=== PATIENT | male | born 1960 | race Caucasian/White ===

== ENCOUNTER 2019-05-12 15:11 | Outpatient (CLI) | payer OTHER, SELFPAY ==
--- NOTE | ~2019-05-12 | XR_ITS ---
EXAMINATION: XR knee RT 2V DATE: 05/12/2019 15:52 INDICATION: Right knee pain. TECHNIQUE: 2 views of right knee were obtained. COMPARISON: None. FINDINGS: Bone alignment is normal. No fracture. There is mild tricompartmental osteoarthritis. No kn ee joint effusion. IMPRESSION: 1. Mild right knee osteoarthritis. Reviewed, dictated and finalized at location B. RNATIVE DISPUTE RESOLUTION MEDIATOR
--- NOTE | ~2019-05-12 | XR_ITS ---
EXAMINATION: XR hip RT 2V w AP pelvis EXAM DATE: 05/12/2019 15:51 INDICATION: No known recent injury provided at this time. Pain of the pelvis, right hip. TECHNIQUE: Right hip frontal, 'frog leg' projections for interpretation. Frontal projection pelvis. There is no prior study for comparison. FINDINGS: There is mild to moderate bilateral hip primary osteoarthritis. No evidence of avascular n ecrosis. There are no acute fractures or dislocations identified. There is no subcutaneous gas. The soft tissue is unremarkable. There are no radiopaque foreign bodies. IMPRESSION: Mild to moderate symmetric bilateral hip osteoarthritis. Reviewed, dictated and finalized at location A. INSTRUCTOR
== END 2019-05-12 15:12 | disposition home or self-care (01) ==
LOC: ANHIMG 15:13
PROVIDERS: PCP Family Medicine; Visit Provider Family Medicine
DX: G89.29 Other chronic pain (principal); M16.0 Bilateral primary osteoarthritis of hip; M17.11 Unilateral primary osteoarthritis, right knee
CPT/HCPCS: 73502; 73521; 73560

== ENCOUNTER → 2019-08-22 11:44 | Outpatient (CLI) | payer OTHER, SELFPAY ==
--- NOTE | ~2019-08-22 | XR_ITS ---
EXAMINATION: XR ribs RT 2V w CXR 2V EXAM DATE: 08/22/2019 12:03 INDICATION: pain right lower aspect of the chest, ribs. TECHNIQUE: Frontal projection of the upper right ribs, frontal projection of the lower right ribs, ob lique projection of the right ribs, frontal and lateral chest x-ray(s) for interpretation. Comparison is made to prior examination from 07/01/2018. FINDINGS: There are no displaced acute right rib fractures identified. There is no soft tissue abno rmality seen. The lungs are clear. There are no pleural effusions. The cardiomediastinal silhouette is within normal limits. There is no pneumothorax suspected. There is moderate bilateral acromiocla vicular joint primary osteoarthritis. Bones are otherwise unremarkable. IMPRESSION: Unremarkable chest x-ray, right rib exam. Reviewed, dictated and finalized at location B.
== END ==
PROVIDERS: PCP Family Medicine; Visit Provider Family Medicine
DX: R07.81 Pleurodynia (principal)
CPT/HCPCS: 71045; 71101

== ENCOUNTER 2019-09-09 08:04 | Outpatient (CLI) | payer OTHER, SELFPAY ==
--- NOTE | ~2019-09-09 | MR_ITS ---
EXAMINATION: MR thoracic spine wo con DATE: 09/09/2019 08:58 INDICATION: Thoracic radiculopathy. TECHNIQUE: Magnetic resonance imaging (MRI) of the thoracic spine was performed without intravenous c ontrast. Sagittal localizer T1-weighted FSE of the cervical spine was obtained. Thoracic spine sequen lynda included sagittal T2-weighted FSE, sagittal T1-weighted FSE, sagittal T2-weighted FS FSE, and axi al T2-weighted FSE. COMPARISON: Chest 2 views 08/22/2019 FINDINGS: There is 9 degrees dextrocurvature of thoracic spine. There are Schmorl's nodes from T5-T6 through T12-L1. There is mild chronic anterior wedging of T12 and L1 vertebral bodies. There is mildl y decreased disc height at T3-T4, T4-T5, and T12-L1. At T3-T4, the disc is bulging with mild central canal stenosis. At T6-T7, there is a right central extrusion with mild central canal stenosis. At T7- T8, there is a right central extrusion with mild central canal stenosis. At T8-T9, there is a right c entral extrusion with mild central canal stenosis. At T10-T11, the disc is bulging with mild central canal stenosis. At T12-L1, there is a right central extrusion with mild central canal stenosis and ve ntral indentation of the spinal cord. There is multilevel mild facet joint osteoarthritis. There is s evere right facet joint osteoarthritis at T4-T5. There is mild neural foraminal stenosis on the right at T4-T5, T5-T6, and T6-T7. The spinal cord signal intensity is normal. IMPRESSION: 1. Mild thoracic spondylosis. Reviewed, dictated and finalized at location A.
== END 2019-09-09 08:05 | disposition home or self-care (01) ==
LOC: ANHIMG 08:06
PROVIDERS: PCP Family Medicine; Visit Provider Orthopaedic Surgery
DX: M47.24 Other spondylosis with radiculopathy, thoracic region (principal)
CPT/HCPCS: 72146

== ENCOUNTER 2020-02-11 10:19 | Outpatient (CLI) | payer OTHER, SELFPAY ==
--- NOTE | ~2020-02-11 | XR_ITS ---
EXAMINATION: XR forearm RT 2V EXAM DATE: 02/11/2020 10:50 INDICATION: Right forearm pain, history of tendon repair. Limited range of motion. Long-standing symp toms. TECHNIQUE: Frontal and lateral projections of the right forearm. Frontal and lateral projections ri ght wrist. FINDINGS: Right wrist is unremarkable. There is a metallic repair anchor in the proximal aspect of th e right radius with about 1-2 mm of lucency surrounding the anchor, could indicate some component of loosening. There is exuberant bony productive change at the ankle repair site both anteriorly and pos teriorly, which potentially could affect patient's range of motion. There are no acute fractures iden tified. The elbow is unremarkable. IMPRESSION: 1. Right radial tendon repair anchor with surrounding lucency, could indicate loosening. 2. Exuberant surrounding bony productive change. Reviewed, dictated and finalized at location A.
[2020-02-11 10:37] LABS: Hematocrit 49.3 % (42.0-52.0); Hemoglobin 17.3 g/dL (14.0-18.0); Mean Corpuscular HGB Conc 35.1 g/dl (32-36); Mean Corpuscular Hemoglobin 31.9 pg (26-34); Mean Platelet Volume 9.7 fl (7.4-10.4); Platelet Count Result 258 k/mm3 (150-375); Red Blood Count 5.42 M/mm3 (4.6-6.20); Red Cell Distribution Width 12.4 % (11.5-14.5); White Blood Count 6.2 K/mm3 (4.5-10.0)
[2020-02-11 11:15] LABS: Alanine Aminotransferase 40 U/L (4-50); Albumin Level 4.3 g/dL (3.5-5.1); Alkaline Phosphatase 67 U/L (38-126); Anion Gap 8 mmol/L (8-16); Aspartate Amino Transferase 36 U/L (17-59); Bilirubin,Total 0.4 mg/dL (0.2-1.3); Blood Urea Nitrogen 13 mg/dL (9-20); Calcium 9.3 mg/dL (8.4-10.2); Carbon Dioxide 26 mmol/L (22-30); Chloride 108 mmol/L (98-107); Cholesterol 167 mg/dL (0-200); Estimated Glomerular Filt Rate > 60; Glucose 104 mg/dL (75-110); HDL Direct 52 mg/dL; Sodium 142 mmol/L (137-145); Triglycerides 127 mg/dL (<150); Uric Acid 5.9 mg/dL (3.5-8.5)
[2020-02-11 11:35] LABS: Erythrocyte Sedimentation Rate 1 mm/hr (0-20); Rheumatoid Factor < 8.6 IU/ML (<12)
[2020-02-11 11:42] LABS: LDL Cholesterol Direct 94 mg/dL
[2020-02-11 12:02] LABS: Prostate Specific Antigen 0.6 ng/mL (< OR = 4.0)
[2020-02-16 10:50] LABS: ANA Cascade Screen Negative (Negative)
[2020-02-17 22:37] LABS: Anti Cyclic Citrullinated Pept <16 Units (<20)
== END 2020-02-11 10:20 | disposition home or self-care (01) ==
LOC: ANHLAB 10:21
PROVIDERS: PCP Family Medicine; Visit Provider Family Medicine
DX: Z00.00 Encounter for general adult medical examination without abnormal findings (principal); M61.50 Other ossification of muscle, unspecified site; M79.631 Pain in right forearm; M25.50 Pain in unspecified joint; D51.9 Vitamin B12 deficiency anemia, unspecified; Z12.5 Encounter for screening for malignant neoplasm of prostate; E78.2 Mixed hyperlipidemia; R93.6 Abnormal findings on diagnostic imaging of limbs
CPT/HCPCS: 36415; 73090; 80053; 80061; 82607; 84153; 84443; 84550; 85027; 85652; 86038; 86200; 86430; G0103

== ENCOUNTER 2020-02-24 10:18 | Outpatient (CLI) | payer OTHER, SELFPAY | END 2020-02-24 10:19 | disposition home or self-care (01) | LOC: ANHLAB 10:19 | PROVIDERS: PCP Family Medicine; Visit Provider Family Medicine | DX: E78.2 Mixed hyperlipidemia (principal) | CPT/HCPCS: 99199; 36415; 80061; 82172; 83695; 83704 ==

== ENCOUNTER → 2020-08-08 09:27 | Outpatient (CLI) | payer OTHER, SELFPAY ==
[2020-08-08 23:00] LABS: SARS-CoV-2 RNA PCR Negative
== END ==
PROVIDERS: PCP Family Medicine; Visit Provider Family Medicine
DX: Z20.828 Contact with and (suspected) exposure to other viral communicable diseases (principal)
CPT/HCPCS: C9803; U0003; U0005

== ENCOUNTER → 2020-08-15 10:24 | Outpatient (CLI) | payer OTHER, SELFPAY ==
[2020-08-15 20:45] LABS: SARS-CoV-2 RNA PCR Negative
== END ==
PROVIDERS: PCP Family Medicine; Visit Provider Family Medicine
DX: R68.89 Other general symptoms and signs (principal); Z20.822 Contact with and (suspected) exposure to COVID-19
CPT/HCPCS: C9803; U0003; U0005

== ENCOUNTER 2020-08-24 08:31 | Outpatient (CLI) | payer OTHER, SELFPAY ==
--- NOTE | 2020-08-24 08:35 | EST_ITS ---
Patient Info Name: Dalton Medina Age: 59 years : 1960 Gender: Male Ht: 66 in Wt: 236 lbs BSA: 2.28 m2 Exam Date: 08/24/2020 8:44 AM Exam Location: [facility] Stress Patient Status: Outpatient Admit Date: 08/24/2020 Staff Ordering Physician: Kim Ziegler NP Attending Provider: Kim Ziegler NP Exercise Technologist: Aggie Rodriguez CT Exercise Physician: Samuel Fragoso MD Exam Type: CA stress test treadmill Study Info Indications R06.02 - Shortness of breath An exercise stress test was performed. Summary 1. Normal sinus rhythm - normal ECG. 2. No abnormal ST/T wave changes with exercise. 3. Exercise stress test to 100% of age predicted maximum heart rate clinically and electrocardiographically negative. Protocol: [facility] ECG Details Stage: REST Duration (min): 1 min : 3 sec Speed (mph): 0.0 Grade (%): 0 HR (bpm): 86 SBP (mmHg): 126 DBP (mmHg): 77 METS: --- Stage: REST Duration (min): 11 min : 3 sec Speed (mph): 0.0 Grade (%): 0 HR (bpm): 87 SBP (mmHg): 126 DBP (mmHg): 77 METS: --- Stage: STAGE 1 Duration (min): 1 min : 0 sec Speed (mph): 1.7 Grade (%): 10 HR (bpm): 123 SBP (mmHg): 126 DBP (mmHg): 77 METS: --- Stage: STAGE 1 Duration (min): 2 min : 0 sec Speed (mph): 1.7 Grade (%): 10 HR (bpm): 133 SBP (mmHg): 126 DBP (mmHg): 77 METS: --- Stage: STAGE 1 Duration (min): 3 min : 0 sec Speed (mph): 1.7 Grade (%): 10 HR (bpm): 142 SBP (mmHg): 173 DBP (mmHg): 91 METS: --- Stage: STAGE 2 Duration (min): 1 min : 0 sec Speed (mph): 2.5 Grade (%): 12 HR (bpm): 145 SBP (mmHg): 173 DBP (mmHg): 91 METS: --- Stage: STAGE 2 Duration (min): 2 min : 0 sec Speed (mph): 2.5 Grade (%): 12 HR (bpm): 154 SBP (mmHg): 186 DBP (mmHg): 88 METS: --- Stage: STAGE 2 Duration (min): 3 min : 0 sec Speed (mph): 2.5 Grade (%): 12 HR (bpm): 163 SBP (mmHg): 186 DBP (mmHg): 88 METS: --- Stage: RECOVERY Duration (min): 0 min : 59 sec Speed (mph): 0.0 Grade (%): 0 HR (bpm): 142 SBP (mmHg): 234 DBP (mmHg): 51 METS: --- Stage: RECOVERY Duration (min): 1 min : 59 sec Speed (mph): 0.0 Grade (%): 0 HR (bpm): 125 SBP (mmHg): 196 DBP (mmHg): 59 METS: --- Stage: RECOVERY Duration (min): 2 min : 59 sec Speed (mph): 0.0 Grade (%): 0 HR (bpm): 119 SBP (mmHg): 200 DBP (mmHg): 67 METS: --- Stage: RECOVERY Duration (min): 3 min : 20 sec Speed (mph): 0.0 Grade (%): 0 HR (bpm): 112 SBP (mmHg): 200 DBP (mmHg): 67 METS: --- Rest HR: 87 bpm Peak HR: 163 bpm Rest Sys BP: 126 mmHg Peak Sys BP: 234 mmHg Max Pred HR: 162 bpm % Max Pred HR: 101 % Target HR: 138 bpm Max RPP: 38,142 bpm*mmHg Tam Score: 0 Target HR Summar
== END 2020-08-24 08:32 | disposition home or self-care (01) ==
PROVIDERS: PCP Nurse Practitioner Family; Visit Provider Nurse Practitioner Family
DX: R06.02 Shortness of breath (principal); R68.89 Other general symptoms and signs
CPT/HCPCS: 93017

== ENCOUNTER → 2020-12-12 13:03 | Outpatient (CLI) | payer OTHER, SELFPAY ==
--- NOTE | ~2020-12-12 | XR_ITS ---
XR knee LT min 4V DATE: 12/12/2020 13:20 INDICATION: Medial left knee pain TECHNIQUE: [place], lateral, AP and PA views COMPARISON: None FINDINGS: No fracture or dislocation or joint effusion. There is mild periarticular spurring of the p atellofemoral joint consistent with osteoarthritis. Minimal lateral compartment joint spaces are well preserved. No radiopaque intra-articular loose body or chondrocalcinosis. No periosteal reaction or bone destruction. IMPRESSION: Mild patellofemoral osteoarthritis Reviewed, dictated and finalized at location B.
== END ==
PROVIDERS: PCP Family Medicine; Visit Provider Family Medicine
DX: M17.12 Unilateral primary osteoarthritis, left knee (principal)
CPT/HCPCS: 73564

== ENCOUNTER → 2020-12-31 12:17 | Outpatient (CLI) | payer OTHER, SELFPAY ==
--- NOTE | ~2020-12-31 | XR_ITS ---
XR foot RT 2V DATE: 12/31/2020 12:29 INDICATION: Right foot pain. Bruising at the distal second and third toes TECHNIQUE: 4 views COMPARISON: None FINDINGS: No fracture or dislocation, periosteal reaction or bone destruction. Joint spaces are prese rved. No erosive changes. IMPRESSION: No significant abnormality Reviewed, dictated and finalized at location A. IMPRESSION: No significant abnormality
== END ==
PROVIDERS: PCP Family Medicine; Visit Provider Family Medicine
DX: M79.671 Pain in right foot (principal)
CPT/HCPCS: 73620

== ENCOUNTER 2021-02-01 08:52 | Outpatient (CLI) | payer OTHER, SELFPAY ==
--- NOTE | 2021-02-01 | EST_ITS ---
Patient Info Name: Dalton Medina Age: 60 years : 1960 Gender: Male Ht: 65 in Wt: 240 lbs BSA: 2.29 m2 HR: 81 bpm BP: 153 / 81 mmHg Technical Quality: Fair Exam Date: 02/01/2021 9:02 AM Exam Location: [facility] Pulmonary Patient Status: Outpatient Admit Date: 02/01/2021 Staff Ordering Physician: Samuel Fragoso MD It Application Support Analyst: Marina Palacio RDCS Attending Provider: DR FRAGOSO Referring Physician: Richmond RM; Exercise Technologist: Aggie Rodriguez CT Nurse: Storm Neff RN Exercise Physician: Samuel Fragoso MD Exam Type: CA stress echo w contrast Study Info Indications R07.9 - Chest pain, unspecified Treadmill exercise stress echocardiogram is performed. Contrast administered to opacify the left ventricle and to improve the deliniation of the left ventricular endocardial borders. Contrast/Agitated Saline Contrast/Ag. Saline: Definity Amount: 2.00 ml Administered By: Storm Neff, RN New IV Access: Right Summary 1. Normal sinus rhythm - normal ECG. 2. No abnormal ST/T wave changes with exercise. 3. Occasional PVCs. 4. Resting echo images done with definity contrast demonstrate normal LV size and contractility. 5. Stress images demonstrate normal hyperdynamic response to exercise with no evidence of stress-induced ischemia. 6. Maximum heart rate achieved was over 100% of age predicted max. Protocol: [facility] ECG Details Stage: REST Duration (min): 3 min : 9 sec Speed (mph): 0.0 Grade (%): 0 HR (bpm): 80 SBP (mmHg): 153 DBP (mmHg): 81 METS: --- Stage: REST Duration (min): 38 min : 2 sec Speed (mph): 0.0 Grade (%): 0 HR (bpm): 85 SBP (mmHg): 153 DBP (mmHg): 81 METS: --- Stage: STAGE 1 Duration (min): 1 min : 0 sec Speed (mph): 1.7 Grade (%): 10 HR (bpm): 119 SBP (mmHg): 153 DBP (mmHg): 81 METS: --- Stage: STAGE 1 Duration (min): 2 min : 0 sec Speed (mph): 1.7 Grade (%): 10 HR (bpm): 136 SBP (mmHg): 153 DBP (mmHg): 81 METS: --- Stage: STAGE 1 Duration (min): 3 min : 0 sec Speed (mph): 1.7 Grade (%): 10 HR (bpm): 146 SBP (mmHg): 171 DBP (mmHg): 90 METS: --- Stage: STAGE 2 Duration (min): 1 min : 0 sec Speed (mph): 2.5 Grade (%): 12 HR (bpm): 154 SBP (mmHg): 171 DBP (mmHg): 90 METS: --- Stage: STAGE 2 Duration (min): 2 min : 0 sec Speed (mph): 2.5 Grade (%): 12 HR (bpm): 167 SBP (mmHg): 180 DBP (mmHg): 90 METS: --- Stage: STAGE 2 Duration (min): 3 min : 0 sec Speed (mph): 2.5 Grade (%): 12 HR (bpm): 173 SBP (mmHg): 180 DBP (mmHg): 90 METS: --- Stage: STAGE 3 Duration (min): 0 min : 2 sec Speed (mph): 0.0 Grade (%): 0 HR (bpm): 173 SBP (mmHg): 180 DBP (mmHg): 90 METS: --- Stage: RECOVERY Duration (min): 0 min : 57 sec Speed (mph): 0.0 Grade (%): 0 HR (bpm):
== END 2021-02-01 08:53 | disposition home or self-care (01) ==
PROVIDERS: PCP Nurse Practitioner Family; Visit Provider Specialist
DX: R07.9 Chest pain, unspecified (principal)
CPT/HCPCS: 93351; C8930

== ENCOUNTER → 2021-04-08 07:59 | Outpatient (CLI) | payer OTHER, SELFPAY ==
[2021-04-08 20:05] LABS: SARS-CoV-2 RNA PCR Positive
== END ==
PROVIDERS: PCP Nurse Practitioner Family; Visit Provider Family Medicine
DX: U07.1 COVID-19 (principal)
CPT/HCPCS: C9803; U0003; U0005

== ENCOUNTER 2021-04-15 10:41 | Outpatient (RCR) | payer OTHER, SELFPAY ==
[2021-04-15] MEDS: ACETAMINOPHEN 325 MG TABLET 650 MG PO (15:04)
[2021-04-15] MEDS: FAMOTIDINE 20 MG TABLET PO (15:04)
[2021-04-15] MEDS: diphenhydrAMINE HCl CAP 25 MG CAPSULE PO (15:04)
[2021-04-15 15:06] VITALS: BP 115/65; PULSE 95; RESP 18; TEMP 37.6; O2SAT 97
[2021-04-15 16:04] VITALS: BP 124/73
--- NOTE | 2021-04-16 10:32 | PC.NURSE ---
Spoke to Carol and he said he feels there is some improvement but does not feel great yet. He has no questions for me at this time.
== END 2021-04-15 17:00 ==
LOC: AMCINF 10:41
PROVIDERS: PCP Family Medicine; Visit Provider Internal Medicine Hematology & Oncology
DX: U07.1 COVID-19 (principal); J44.9 Chronic obstructive pulmonary disease, unspecified
CPT/HCPCS: A9270; M0243

== ENCOUNTER 2021-04-16 20:40 | Inpatient (IN) | payer OTHER, SELFPAY ==
--- NOTE | ~2021-04-16 | CT_ITS ---
EXAMINATION: CTA chest PE protocol EXAM DATE: 04/16/2021 23:25 INDICATION: Elevated dimer, COVID +. TECHNIQUE: Spiral CTA of the chest (pulmonary arteries) was performed with 100 cc Omnipaque 350 intr avenous contrast injection. Images were acquired during the pulmonary arterial phase. Coronal maxi mum intensity projection 3D-reconstructions were created by the technologist on dedicated workstation . Axial, coronal and sagittal reformatted images were reviewed. The dose-length product (DLP) for t his examination was 889.55 mGy-cm. The exposure was tailored according to patient size (auto mA exp osure control), and iterative reconstruction (ASIR) was used as additional dose reduction technique. Correlation is made to chest x-ray earlier same date. FINDINGS: Pulmonary arteries are well opacified and without intraluminal filling defects. No thorac ic aortic dissection. There is small to moderate amount of peripheral and dependent groundglass airspace disease, distribut ion and appearance is consistent with acute COVID pneumonia. There are no pleural or pericardial eff usions. Tracheobronchial tree is patent. There is no mediastinal, hilar or axillary lymphadenopat hy. There is no pneumothorax. Heart normal in size. There is mild coronary arterial calcificati on, arterial sclerosis. Hepatic steatosis. There is thoracic spondylosis without osteoblastic or os teolytic lesions identified. IMPRESSION: 1. Small to moderate amount of acute COVID pneumonia. 2. No pulmonary emboli. Reviewed, dictated and finalized at location G. CLASSER
--- NOTE | ~2021-04-16 | XR_ITS ---
EXAMINATION: XR chest 1V portable EXAM DATE: 04/16/2021 21:47 INDICATION: Cough and dyspnea. TECHNIQUE: Portable AP frontal chest x-ray was obtained. Comparison is made to prior examination from 08/22/2019. FINDINGS: No definite focal airspace disease. There are no pleural effusions. Cardiac silhouette is prominent but magnified on this AP technique. There is no pneumothorax suspected. The bones and s oft tissues are unremarkable. IMPRESSION: No definite focal airspace disease. Reviewed, dictated and finalized at location G. SPORT AIDE
--- NOTE | ~2021-04-16 | XR_ITS ---
EXAMINATION: XR chest 1V portable DATE: 04/18/2021 06:01 INDICATION: COVID-19 pneumonia. TECHNIQUE: A single frontal view of the chest was obtained. COMPARISON: Chest single view 04/16/2021, chest CT 04/16/2021 FINDINGS: There are patchy airspace opacities in the mid and lower lung zones with a peripheral predo minance. No pleural effusion or pneumothorax. The heart size is normal. IMPRESSION: 1. Worsened patchy airspace opacities in the mid and lower lung zones, consistent with COVID-19 pneum onia. Reviewed, dictated and finalized at location A. MANAGER IMPRESSION: 1. Worsened patchy airspace opacities in the mid and lower lung zones, consiste nt with COVID-19 pneumonia.
--- NOTE | 2021-04-16 21:10 | ED.URI ---
HPI - URI/Sore Throat General Chief Complaint: Upper Respiratory Infection Stated Complaint: COVID + Time Seen by Provider: 04/16/21 21:09 Source: patient Mode of arrival: ambulatory Limitations: no limitations History of Present Illness HPI Narrative: The patient is a 60-year-old male who is positive for Covid, currently on day 9 of illness, presenting for evaluation of myalgias, arthralgias, dehydration. Patient tested positive for Covid on April 08. Patient states he has been unable to tolerate oral intake. States that every time he tries to eat or drink anything he experiences diarrhea. Patient reports nasty taste in his mouth anytime he tries to eat. He reports subjective fever and chills. He reports myalgias, arthralgias throughout his body. He denies any chest pain or shortness of breath. He does report dry cough. Denies vomiting, does report mild nausea. He denies leg swelling or calf pain. Denies any pleuritic pain. Patient has been ambulatory. He reports feeling diffusely weak but denies any focal weakness or numbness. Patient and received monoclonal antibody infusions this morning. Patient is unvaccinated. Positive contact is his grandchild. Related Data Allergies Allergy/AdvReac Type Severity Reaction Status Date / Time No Known Allergies Allergy Verified 04/15/21 15:10 Review of Systems Review of Systems: CONSTITUTIONAL: Reports fever and chills EYES: Denies visual changes, redness, or discharge. ENT: Reports rhinorrhea and congestion CARDIOVASCULAR: Denies chest pain, palpitations, or edema. RESPIRATORY: Reports dry cough without shortness of breath GASTROINTESTINAL: Denies abdominal pain, reports nausea and diarrhea GENITOURINARY: Denies dysuria or hematuria. SKIN: Denies rash or itching. MUSCULOSKELETAL: Denies reports myalgias, arthralgias NEUROLOGIC: Reports mild headache, denies focal numbness, endorses generalized weakness PMFSH Past Medical History Medical History Abnormal fasting glucose Acute non-recurrent maxillary sinusitis Acute pain of right foot COVID-19 (~04/06/21) rapid test positive for 04/08/2021 0730 Encounter for prostate cancer screening Encounter for screening for other viral diseases Encounter for wellness examination in adult Exposure to COVID-19 virus Family history of colon cancer in father Infected tick bite of neck (09/02/20) Joint pain Left knee pain Mixed hyperlipidemia Myositis ossificans KHURRAM on CPAP Osteoarthritis of left knee Otitis externa in other diseases classified elsewhere, right ear (10/13/20) Pain in right forearm Polyp of colon (08/12/99) normal colonoscopy 02/18/1995, 2 polyps on 08/12/1999, polyp on 08/15/2005, 3 polyps on 02/22/2010, 2 polyps on 04/30/2017 Right knee pain Thoracic radiculitis URI, acute Vitamin B12 deficiency anemia Social History Social History Smoking status: Never smoker Gender identity (if verbalized by the patient): Male Spiritual care concerns: No Exam Narrative: GENERAL: Awake, alert, conversant HEAD: Normocephalic, atraumatic. EYES: PERRLA and EOMI. ENT: Nares clear, no rhinorrhea or epistaxis. Mucous membranes dry NECK: Supple. CHEST: No respiratory distress, breathing even and non labored, mildly coarse breath sounds bilaterally HEART: Regular rate, sinus rhythm ABDOMEN:Non distended, non tender EXTREMITIES: Normal range of motion. No edema. SKIN: Warm, dry, no rash. NEURO:No focal deficits. Alert and oriented x3. Patient ambulated through the emergency department without any ataxia or difficulty with ambulation. Course Vital Signs Vital signs: Vital Signs Temperature 36.9 C 04/16/21 21:26 Pulse Rate 90 04/16/21 21:26 Respiratory Rate 18 04/16/21 21:26 Blood Pressure 153/84 H 04/16/21 21:26 Pulse Oximetry 98 04/16/21 21:26 Temperature 36.9 C 04/16/21 21:26 Pulse
[2021-04-16 21:26] VITALS: BP 153/84; PULSE 90; RESP 18; TEMP 36.9; O2SAT 98
--- NOTE | 2021-04-16 21:33 | ECG_ITS ---
Measurements Intervals Donovan Rate: 98 P: 61 VA: 146 QRS: 15 QRSD: 82 T: 39 QT: 318 QTc: 408 Interpretive Statements SINUS RHYTHM POSSIBLE LEFT ATRIAL ENLARGEMENT BASELINE WANDER- V3 BORDERLINE ECG Electronically Signed On 04-17-2021 6:40:19 DIETARY COOK by Shawn Orantes D.O.
[2021-04-16] MEDS: ONDANSETRON INJ 4 MG/2 ML VIAL IV PUSH (22:12)
[2021-04-16] MEDS: SODIUM CHLORIDE 0.9% IV 1,000 ML 999 ML IV CONT (22:12)
[2021-04-16 22:50] LABS: Basophils Percent Auto 0.3 % (0.2-1.2); Hemoglobin 14.4 g/dL (14.0-18.0); Immature Granulocyte Absolute 0.03 K/mm3 (0.00-0.031); Immature Granulocyte Percent A 0.4 % (0-0.5); Lymphocytes Absolute Auto 0.73 K/mm3 (0.9-3.2); Lymphocytes Percent Auto 10.5 % (18.3-44.2); Mean Corpuscular HGB Conc 35.1 g/dl (32-36); Mean Corpuscular Volume 88.4 fl (80-100); Mean Platelet Volume 9.2 fl (7.4-10.4); Monocytes Absolute Auto 0.4 K/mm3 (0.1-0.6); Monocytes Percent Auto 5.5 % (2.6-8.5); Neutrophils Absolute Auto 5.8 K/mm3 (1.3-6.7); Neutrophils Percent Auto 83.3 % (45.5-73.1); Platelet Count Result 189 k/mm3 (150-375); Red Blood Count 4.64 M/mm3 (4.6-6.20); Red Cell Distribution Width 12.6 % (11.5-14.5); White Blood Count 6.9 K/mm3 (4.5-10.0)
[2021-04-16 23:02] LABS: Lactic Acid Reflex 0.7 mmol/L (0.7-2.1)
[2021-04-16 23:04] LABS: INR 0.9
[2021-04-16 23:05] LABS: Alanine Aminotransferase 54 U/L (4-50); Albumin Level 3.9 g/dL (3.5-5.1); Alkaline Phosphatase 53 U/L (38-126); Anion Gap 8 mmol/L (8-16); Aspartate Amino Transferase 105 U/L (17-59); Bilirubin,Total 0.4 mg/dL (0.2-1.3); Blood Urea Nitrogen 17 mg/dL (9-20); Carbon Dioxide 25 mmol/L (22-30); Chloride 94 mmol/L (98-107); Estimated CRCL calculation 95 ml/min; Estimated Glomerular Filt Rate > 60; Glucose 120 mg/dL (65-110); Partial Thromboplastin Time 36.3 SECONDS (22.3-36.8); Potassium 3.7 mmol/L (3.4-5.0); Sodium 127 mmol/L (137-145)
[2021-04-16 23:07] LABS: D Dimer 0.97 ug/mL (<0.48)
[2021-04-16 23:12] LABS: Creatine Kinase 2839 U/L (55-170)
[2021-04-16 23:16] LABS: CRP 12.3 mg/dL (<1.0)
[2021-04-16 23:56] LABS: Ferritin > 1000.00 ng/mL (11.1-264)
[2021-04-17] VITALS (8 sets, daily range): BP systolic 113–157; BP diastolic 65–82; PULSE 70–95; RESP 16–20; TEMP 36.1–37.4; O2SAT 91–98; BMI 38.8
--- NOTE | 2021-04-17 00:14 | PM.IMHP ---
H&P: HPI History of Present Illness Date/Time: 04/17/21 00:14 Chief Complaint: Body aches and pains Narrative: This is a 60-year-old male with past medical history significant for GERD co abnormal fasting glucose, obstructive sleep apnea on CPAP, osteoarthritis of the left knee. Patient presented to the emergency room due to generalized malaise, body aches and pains, loss of taste and smell,poor appetite ,feeling dehydrated has not been able to eat in 10 days. Patient had a gallery for sent given and several family members have turned out to be positive COVID-19. Patient denies any fevers, rigors, chills, shortness of breath, cough ,sputum production ,nausea ,vomiting but has had diarrhea. Preliminary workup was significant for ferritin above 1000, CPK of 2880, sodium of 127. A COVID PCR is pending currently. Patient has been admitted for further evaluation management and treatment. Review of Systems Review of Systems: Generalized malaise body aches and pains poor appetite change of taste and smell Constitutional: Constitutional: Reports chills, Reports fatigue, Denies fever(s), Reports lethargy, Reports malaise, Denies night sweats, Reports poor appetite and Reports weakness Eyes: Eyes: Denies change in vision and Denies photophobia ENT: Denies dysphagia, Denies vertigo, Denies otalgia, Denies epistaxis, Denies nasal congestion, Denies nasal discharge, Denies nasal obstruction and Denies odynophagia Cardiovascular: Cardiovascular: Denies chest pain, Denies chest pain at rest, Denies pedal edema, Denies irregular heart rhythm, Denies leg edema, Denies lightheadedness, Denies radiating jaw, neck or arm pain, Denies palpitations, Denies dyspnea on exertion and Denies orthopnea Respiratory: Respiratory: Denies change in phlegm color, Denies cough, Denies excessive phlegm production, Denies dyspnea and Denies wheezing Gastrointestinal: Gastrointestinal: Denies abdominal pain, Denies dyspepsia, Denies heartburn, Denies diarrhea, Denies nausea and Denies vomiting Musculoskeletal: Musculoskeletal: Denies arthralgias, Denies joint swelling and Denies neck pain Integumentary/Breasts: Skin/Breast: Denies rash Neurologic: Denies focal weakness and Denies Sensory deficit (Neuro) Psychiatric: Psychiatric: Reports no additional psychiatric complaints and Reports as per HPI Endocrine: Endocrine: Reports no additional endocrine complaints and Reports as per HPI Hematologic/Lymphatic: Hematologic/Lymphatic: Reports no additional hematologic/lymphatic complaints and Reports as per HPI Allergic/Immunologic: Allergic/Immunologic: Reports no additional allergic/immunologic complaints and Reports as per HPI [facility] Past Medical History Medical History Abnormal fasting glucose Acute non-recurrent maxillary sinusitis Acute pain of right foot COVID-19 (~04/06/21) rapid test positive for 04/08/2021 0730 Encounter for prostate cancer screening Encounter for screening for other viral diseases Encounter for wellness examination in adult Exposure to COVID-19 virus Family history of colon cancer in father Infected tick bite of neck (09/02/20) Joint pain Left knee pain Mixed hyperlipidemia Myositis ossificans KHURRAM on CPAP Osteoarthritis of left knee Otitis externa in other diseases classified elsewhere, right ear (10/13/20) Pain in right forearm Polyp of colon (08/12/99) normal colonoscopy 02/18/1995, 2 polyps on 08/12/1999, polyp on 08/15/2005, 3 polyps on 02/22/2010, 2 polyps on 04/30/2017 Right knee pain Thoracic radiculitis URI, acute Vitamin B12 deficiency anemia Family History Family History (Updated 04/17/21 @ 02:57 by Morena Boyd RN) Father Acute myocardial infarction Colon cancer Mother Hypertension Social History Social History Smoking status: Never smoker Alcohol intake: never Substance use: never Gender identi
[2021-04-17 01:45] LABS: Troponin I < 0.012 ng/mL (0.000-0.034)
[2021-04-17 03:49] LABS: Add Urine Microscopic? YES; Appearance Urine Clear (Clear); Bacteria Urine Trace /hpf; Bilirubin Urine Negative (Negative); Blood Urine 2+ (Negative); Color Urine Yellow (Yellow); Glucose Urine UA Negative (Negative); Ketones Urine 1+ mg/dL (Negative); Leukocyte Esterase Ur Negative LEU/UL (Negative); Mucus Urine Rare /lpf; Nitrate Urine Negative (Negative); Protein Urine 2+ mg/dL (Negative); RBC Urine 0-2 /hpf (0-2); Urobilinogen Urine Negative mg/dL (<2.0); WBC Urine 0-3 /hpf
[2021-04-17 03:55] LABS: Specific Grav Ur 1.058 (1.001-1.035)
[2021-04-17] MEDS: SODIUM CHLORIDE 0.9% IV 1,000 ML 125 ML IV CONT (07:30)
[2021-04-17 07:38] LABS: Basophils Percent Auto 0.2 % (0.2-1.2); Hematocrit 41.4 % (42.0-52.0); Hemoglobin 14.3 g/dL (14.0-18.0); Immature Granulocyte Absolute 0.02 K/mm3 (0.00-0.031); Immature Granulocyte Percent A 0.3 % (0-0.5); Lymphocytes Absolute Auto 0.74 K/mm3 (0.9-3.2); Lymphocytes Percent Auto 11.5 % (18.3-44.2); Mean Corpuscular HGB Conc 34.5 g/dl (32-36); Mean Corpuscular Hemoglobin 30.2 pg (26-34); Mean Corpuscular Volume 87.5 fl (80-100); Mean Platelet Volume 9.5 fl (7.4-10.4); Monocytes Absolute Auto 0.4 K/mm3 (0.1-0.6); Monocytes Percent Auto 5.4 % (2.6-8.5); Neutrophils Absolute Auto 5.3 K/mm3 (1.3-6.7); Neutrophils Percent Auto 82.6 % (45.5-73.1); Platelet Count Result 202 k/mm3 (150-375); Red Blood Count 4.73 M/mm3 (4.6-6.20); Red Cell Distribution Width 12.5 % (11.5-14.5); White Blood Count 6.4 K/mm3 (4.5-10.0)
[2021-04-17 08:03] LABS: Alanine Aminotransferase 55 U/L (4-50); Albumin Level 3.9 g/dL (3.5-5.1); Alkaline Phosphatase 54 U/L (38-126); Anion Gap 8 mmol/L (8-16); Aspartate Amino Transferase 108 U/L (17-59); Bilirubin,Total 0.5 mg/dL (0.2-1.3); Blood Urea Nitrogen 16 mg/dL (9-20); Carbon Dioxide 25 mmol/L (22-30); Chloride 95 mmol/L (98-107); Creatine Kinase 2927 U/L (55-170); Estimated CRCL calculation 97 ml/min; Estimated Glomerular Filt Rate > 60; Glucose 113 mg/dL (65-110); Potassium 3.8 mmol/L (3.4-5.0); Sodium 128 mmol/L (137-145)
--- NOTE | 2021-04-17 15:08 | PM.IMPN ---
Progress Note: A&P Assessment and Plan (1) Rhabdomyolysis: Code(s): M62.82 - Rhabdomyolysis Status: Acute Assessment and Plan: Patient had TCK 2839 on admission. He has 2+ blood but no RBCs consistent with rhabdo. He was started on IV fluids despite having COVID. Will need to monitor closely and stop IV fluids when TCK<1000 and/or urine blood resolves. No offending agents. Suspect realted to COVID. (2) Pneumonia due to COVID-19 virus: Code(s): U07.1 - COVID-19; J12.82 - Pneumonia due to coronavirus disease 2019 Status: Acute Assessment and Plan: Patient diagnosed with COVID 04/08. CT Chest has findings of COVID PNA but remains on room air thus does not require steroids or remdesivir. CRP 12. Follow for now. (3) COVID-19: Onset Date: ~04/06/21 Code(s): U07.1 - COVID-19 Status: Acute Assessment and Plan: As above. Most of his symptoms are related to GI. This should run its course. He did receive REGEN-COV which does have the side effects of n/v as well. Continue to monitor. Continue supportive care. (4) Elevated LFTs: Code(s): R79.89 - Other specified abnormal findings of blood chemistry Status: Acute Assessment and Plan: LFTs mildly elevated. Probably related to COVID and/or rhabdo. Will follow. Check hepatits panel given the GI symptoms (5) Acute hyponatremia: Code(s): E87.1 - Hypo-osmolality and hyponatremia Status: Acute Assessment and Plan: Serum sodium 127 on admission. Renal function normal. UA showing specific gravity concentrated. Not on diuretics. Repeat Na better. Continue with IV fluids for the rhabdomyolysis. Follow (6) KHURRAM on CPAP: Code(s): G47.33 - Obstructive sleep apnea (adult) (pediatric); Z99.89 - Dependence on other enabling machines and devices Status: Acute Assessment and Plan: Would hold CPAP given that he has COVID PNA. (7) DVT prophylaxis: Code(s): Z29.9 - Encounter for prophylactic measures, unspecified Status: Acute Assessment and Plan: Lovenox Subjective Date/time seen: AF Gen - NARD Chest - CTA bilaterally, nml RR CV - RRR S1/S2 Abd - Soft, NT/ND, Positive BS Ext - No pedal edema Neuro - Alert and oriented. Nonfocal exam. Psych - Nml mood and affect Skin - Warm and dry04/17/21 15:08 Interval history: 60yo male with KHURRAM here for nausea, vomiting and diarrhea after being recently tested positive for COVID. Patient is unvaccinated. Patient had a cough and congestion 04/14 and tested positive for COVID the next day. He received monoclonal AB on 04/15/21. He also began to have nausea, vomiting with diarrhea. Diarrhea occurs with eating. No CP. Mild cough now. Tolerating po. Has taste disturbance and anosmia. Exam Narrative: AF 98.3 131/78 83 16 95% Gen - NARD sitting at the side of the bed Chest - bibasilar inspiratory crackles, nml RR CV - RRR S1/S2 Abd - Soft, NT/ND, Positive BS Ext - No pedal edema Psych - Nml mood and affect Skin - Warm and dry Objective Data Vital Signs Vital Signs: Vital Signs - 24 hr 04/16/21 21:26 04/17/21 01:18 04/17/21 01:30 Temperature 98.4 F 96.9 F L Pulse Rate 90 70 87 Respiratory Rate 18 18 18 Blood Pressure 153/84 H 157/82 H 130/80 Pulse Oximetry 98 96 94 04/17/21 04:44 04/17/21 04:47 04/17/21 08:00 Temperature 98.1 F 99.3 F Pulse Rate 81 95 Respiratory Rate 18 16 Blood Pressure 114/65 129/75 Pulse Oximetry 98 94 91 04/17/21 13:54 Temperature 98.3 F Pulse Rate 83 Respiratory Rate 16 Blood Pressure 131/78 Pulse Oximetry 95 Intake/Output Intake/Output: Intake & Output 04/14/21 04/15/21 04/16/21 04/17/21 23:59 23:59 23:59 23:59 Intake Total 1100 320 Output Total 500 Balance 1100 -180 Meds/Results Medications: Active Medications Generic Name Dose Route Start Last Admin Trade Name Freq PRN Reason Stop Dose Admin Enoxaparin Sodium 4
[2021-04-18] VITALS (8 sets, daily range): BP systolic 110–136; BP diastolic 63–86; PULSE 76–83; RESP 16–19; TEMP 36.4–37.3; O2SAT 93–98
[2021-04-18 07:25] LABS: Basophils Percent Auto 0.3 % (0.2-1.2); Eosinophils Percent Auto 0.3 % (0-4.4); Hematocrit 37.5 % (42.0-52.0); Immature Granulocyte Absolute 0.02 K/mm3 (0.00-0.031); Immature Granulocyte Percent A 0.6 % (0-0.5); Lymphocytes Absolute Auto 0.94 K/mm3 (0.9-3.2); Lymphocytes Percent Auto 27.7 % (18.3-44.2); Mean Corpuscular HGB Conc 34.7 g/dl (32-36); Mean Corpuscular Hemoglobin 31.3 pg (26-34); Mean Corpuscular Volume 90.1 fl (80-100); Mean Platelet Volume 9.4 fl (7.4-10.4); Monocytes Absolute Auto 0.3 K/mm3 (0.1-0.6); Monocytes Percent Auto 9.4 % (2.6-8.5); Neutrophils Absolute Auto 2.1 K/mm3 (1.3-6.7); Neutrophils Percent Auto 61.7 % (45.5-73.1); Platelet Count Result 206 k/mm3 (150-375); Red Blood Count 4.16 M/mm3 (4.6-6.20); Red Cell Distribution Width 12.6 % (11.5-14.5); White Blood Count 3.4 K/mm3 (4.5-10.0)
[2021-04-18] MEDS: SODIUM CHLORIDE 0.9% IV 1,000 ML 125 ML IV CONT ×2 (08:08→18:39)
[2021-04-18 08:13] LABS: Alanine Aminotransferase 57 U/L (4-50); Albumin Level 3.3 g/dL (3.5-5.1); Alkaline Phosphatase 49 U/L (38-126); Anion Gap 4 mmol/L (8-16); Aspartate Amino Transferase 98 U/L (17-59); Bilirubin,Total 0.4 mg/dL (0.2-1.3); Blood Urea Nitrogen 11 mg/dL (9-20); CRP 5.9 mg/dL (<1.0); Calcium 7.6 mg/dL (8.4-10.2); Carbon Dioxide 26 mmol/L (22-30); Chloride 101 mmol/L (98-107); Creatine Kinase 2322 U/L (55-170); Estimated CRCL calculation 110 ml/min; Estimated Glomerular Filt Rate > 60; Glucose 110 mg/dL (65-110); Lactate Dehydrogenase 1285 U/L (313-618); Potassium 3.5 mmol/L (3.4-5.0); Sodium 131 mmol/L (137-145)
--- NOTE | 2021-04-18 09:32 | PM.IMPN ---
Progress Note: A&P Assessment and Plan (1) Rhabdomyolysis: Code(s): M62.82 - Rhabdomyolysis Status: Acute Assessment and Plan: Patient had TCK 2839 on admission. He has 2+ blood but no RBCs consistent with rhabdo. He was started on IV fluids despite having COVID. Will need to monitor closely and stop IV fluids when TCK<1000 and/or urine blood resolves. No offending agents so suspect related to COVID. TCK better today. Continue IV fluids. Lasix x1. (2) Pneumonia due to COVID-19 virus: Code(s): U07.1 - COVID-19; J12.82 - Pneumonia due to coronavirus disease 2019 Status: Acute Assessment and Plan: Patient diagnosed with COVID 04/08. CT Chest has findings of COVID PNA but remains on room air thus does not require steroids or remdesivir. CRP was 12 now down to 5.9. Follow for now. (3) COVID-19: Onset Date: ~04/06/21 Code(s): U07.1 - COVID-19 Status: Acute Assessment and Plan: As above. Most of his symptoms are related to GI. This should run its course. He did receive REGEN-COV which does have the side effects of n/v as well. leukopenia noted and also could be related to COVID. Continue to monitor. Continue supportive care. (4) Elevated LFTs: Code(s): R79.89 - Other specified abnormal findings of blood chemistry Status: Acute Assessment and Plan: LFTs mildly elevated. Probably related to COVID and/or rhabdomyolysis. Hepatitis panel pending. AST better but ALT about unchanged. Follow. (5) Acute hyponatremia: Code(s): E87.1 - Hypo-osmolality and hyponatremia Status: Acute Assessment and Plan: Serum sodium 127 on admission. Renal function normal. UA showing specific gravity concentrated. Not on diuretics. Repeat Na better. Continue with IV fluids for the rhabdomyolysis. Follow (6) KHURRAM on CPAP: Code(s): G47.33 - Obstructive sleep apnea (adult) (pediatric); Z99.89 - Dependence on other enabling machines and devices Status: Acute Assessment and Plan: Would hold CPAP given that he has COVID PNA. (7) DVT prophylaxis: Code(s): Z29.9 - Encounter for prophylactic measures, unspecified Status: Acute Assessment and Plan: Lovenox Subjective Date/time seen: 04/18/21 09:32 Interval history: 60yo male with KHURRAM here for nausea, vomiting and diarrhea after being recently tested positive for COVID. Patient is unvaccinated. Patient with mild cough he feels related to PND. No COELHO or SOB. No CP. Diarrhea has resolved. Eating better but still with dysgeusia. Exam Narrative: AF 98.6 113/70 76 16 93% RA Gen - NARD sitting at the side of the bed Chest - mild bibasilar inspiratory crackles, nml RR CV - RRR S1/S2 Abd - Soft, NT/ND, Positive BS Ext - No pedal edema Psych - Nml mood and affect Skin - Warm and dry Objective Data Vital Signs Vital Signs: Vital Signs - 24 hr 04/17/21 13:54 04/17/21 16:00 04/17/21 20:25 Temperature 98.3 F 98.4 F 98.8 F Pulse Rate 83 85 87 Respiratory Rate 16 20 18 Blood Pressure 131/78 113/74 117/71 Pulse Oximetry 95 92 95 04/18/21 00:00 04/18/21 06:00 Temperature 98.7 F 98.6 F Pulse Rate 78 76 Respiratory Rate 16 16 Blood Pressure 110/63 113/70 Pulse Oximetry 95 93 Intake/Output Intake/Output: Intake & Output 04/15/21 04/16/21 04/17/21 04/18/21 23:59 23:59 23:59 23:59 Intake Total 1100 2320 500 Output Total 500 Balance 1100 1820 500 Meds/Results Medications: Active Medications Generic Name Dose Route Start Last Admin Trade Name Freq PRN Reason Stop Dose Admin Enoxaparin Sodium 40 mg 04/17/21 09:00 04/18/21 08:14 Enoxaparin 40 Mg/0.4 Ml Syringe SUB-Q Not Given DAILY TAMMY Famotidine 20 mg 04/17/21 06:53 Famotidine 20 Mg Tablet PO BID PRN reflux Sodium Chloride 1,000 mls @ 125 mls/hr 04/17/21 06:55 04/18/21 08:08 Normal Saline Iv IV CONT 125 mls/hr .Q8H TAMMY Administrati
[2021-04-18 10:12] LABS: Hepatitis C Virus Antibody Negative (Negative)
[2021-04-18 11:18] LABS: HAV RESULT Negative (Negative); Hepatitis B Core IgM Result Negative (Negative); Hepatitis B Surface Antigen Negative (Negative)
[2021-04-18] MEDS: FUROSEMIDE INJ 40 MG/4 ML VIAL 20 MG IV PUSH (13:23)
[2021-04-18] MEDS: POTASSIUM CHLORIDE 20 MEQ TABLET 40 MEQ PO (13:49)
[2021-04-19 00:07] VITALS: BP 127/70; PULSE 81; RESP 18; TEMP 36.3; O2SAT 95
[2021-04-19] MEDS: SODIUM CHLORIDE 0.9% IV 1,000 ML 125 ML IV CONT (01:25)
[2021-04-19 04:44] VITALS: BP 131/81; PULSE 77; RESP 16; TEMP 36.3; O2SAT 96
[2021-04-19 07:56] LABS: Basophils Percent Auto 0.4 % (0.2-1.2); Eosinophils Percent Auto 0.6 % (0-4.4); Hematocrit 39.3 % (42.0-52.0); Hemoglobin 13.4 g/dL (14.0-18.0); Immature Granulocyte Absolute 0.03 K/mm3 (0.00-0.031); Immature Granulocyte Percent A 0.6 % (0-0.5); Lymphocytes Absolute Auto 0.88 K/mm3 (0.9-3.2); Lymphocytes Percent Auto 18.3 % (18.3-44.2); Mean Corpuscular HGB Conc 34.1 g/dl (32-36); Mean Platelet Volume 9.4 fl (7.4-10.4); Monocytes Absolute Auto 0.5 K/mm3 (0.1-0.6); Monocytes Percent Auto 10.6 % (2.6-8.5); Neutrophils Absolute Auto 3.4 K/mm3 (1.3-6.7); Neutrophils Percent Auto 69.5 % (45.5-73.1); Platelet Count Result 260 k/mm3 (150-375); Red Blood Count 4.32 M/mm3 (4.6-6.20); Red Cell Distribution Width 12.7 % (11.5-14.5); White Blood Count 4.8 K/mm3 (4.5-10.0)
[2021-04-19 08:00] VITALS: BP 123/78; PULSE 80; RESP 16; TEMP 36.1; O2SAT 96
[2021-04-19 08:09] LABS: Alanine Aminotransferase 72 U/L (4-50); Albumin Level 3.4 g/dL (3.5-5.1); Alkaline Phosphatase 58 U/L (38-126); Anion Gap 8 mmol/L (8-16); Aspartate Amino Transferase 86 U/L (17-59); Bilirubin,Total 0.4 mg/dL (0.2-1.3); Blood Urea Nitrogen 8 mg/dL (9-20); CRP 3.4 mg/dL (<1.0); Calcium 7.9 mg/dL (8.4-10.2); Carbon Dioxide 22 mmol/L (22-30); Chloride 104 mmol/L (98-107); Creatine Kinase 1135 U/L (55-170); Estimated CRCL calculation 110 ml/min; Estimated Glomerular Filt Rate > 60; Glucose 108 mg/dL (65-110); Lactate Dehydrogenase 1214 U/L (313-618); Potassium 3.7 mmol/L (3.4-5.0); Sodium 134 mmol/L (137-145)
--- NOTE | 2021-04-19 10:44 | PM.DS ---
DS: Admitting Diagnosis Discharge Date 04/19/21 Admitting Diagnosis Myalgias DS: Discharge Diagnosis Discharge Diagnosis (1) Rhabdomyolysis: Code(s): M62.82 - Rhabdomyolysis Status: Acute Assessment and Plan: Patient had TCK 2839 on admission. He has 2+ blood but no RBCs consistent with rhabdo. He was started on IV fluids despite having COVID. No offending agents so suspect related to COVID. TCK trended down to 1135. He was insisted on being discharged today. Encouraged to drink plenty of free water and return to the ED if he develops turbid or tea colored urine. He voices understanding. (2) Pneumonia due to COVID-19 virus: Code(s): U07.1 - COVID-19; J12.82 - Pneumonia due to coronavirus disease 2019 Status: Acute Assessment and Plan: Patient diagnosed with COVID 04/08. CT Chest shows findings of COVID PNA but remained on room air thus did not require steroids or remdesivir. CRP was 12 now down to 3.4. LDH elevated but trended down on repeat. He is about 2 weeks out from start of symptoms. (3) COVID-19: Onset Date: ~04/06/21 Code(s): U07.1 - COVID-19 Status: Acute Assessment and Plan: As above. Most of his symptoms are related to GI. This should run its course. He did receive REGEN-COV which does have the side effects of n/v as well. Mild leukopenia noted and also could be related to COVID; leukopenia resolved. (4) Elevated LFTs: Code(s): R79.89 - Other specified abnormal findings of blood chemistry Status: Acute Assessment and Plan: LFTs mildly elevated. Probably related to COVID and/or rhabdomyolysis. Hepatitis panel negative. AST better but ALT worse but overall only mild elevated. Repeat LFTs as outpatient. (5) Acute hyponatremia: Code(s): E87.1 - Hypo-osmolality and hyponatremia Status: Acute Assessment and Plan: Serum sodium 127 on admission. Renal function normal. UA showing specific gravity concentrated. Not on diuretics. Repeat Na better. (6) KHURRAM on CPAP: Code(s): G47.33 - Obstructive sleep apnea (adult) (pediatric); Z99.89 - Dependence on other enabling machines and devices Status: Acute Assessment and Plan: We held CPAP given that he has COVID PNA. DS: Summary Hospital Course Reason for hospitalization: 60yo male with KHURRAM here for nausea, vomiting and diarrhea after being recently tested positive for COVID. Please see H&P for details. Hospital Course: Please see above for details of hospital course Status at Discharge Cognitive/behavioral status at discharge: stable Time Spent with Patient Time attestation: Total time spent providing and/or coordinating discharge services: 35 minutes Time spent: Greater than 30 minutes Exam Narrative: AF 97.0 123/78 80 16 96% RA Gen - NARD sitting at the side of the bed Chest - few basilar rhonchi but overall clear CV - RRR S1/S2 Abd - Soft, NT/ND, Positive BS Ext - No pedal edema. Negative Homans sign Psych - Nml mood and affect Skin - Warm and dry DS: Data Data Completed and Pending Labs on day of discharge: Labs from last 24 hours 04/19/21 04/19/21 04/18/21 07:26 07:26 06:44 WBC 4.8 RBC 4.32 L Hgb 13.4 L Hct 39.3 L MCV 91.0 MCH 31.0 MCHC 34.1 RDW 12.7 Plt Count 260 MPV 9.4 Immature Gran % (Auto) 0.6 H Neut % (Auto) 69.5 Lymph % (Auto) 18.3 Owen % (Auto) 10.6 H Eos % (Auto) 0.6 Baso % (Auto) 0.4 Lymph # (Auto) 0.88 L Owen # (Auto) 0.5 Eos # (Auto) 0.0 Baso # (Auto) 0.0 Abs Immat Gran (auto) 0.03 Absolute Neuts (auto) 3.4 Absolute Nucleated RBC 0.0 Nucleated RBC % 0.0 Sodium 134 L Potassium 3.7 Chloride 104 Carbon Dioxide 22 Anion Gap 8 BUN 8 L Creatinine 0.70 Estim Creat Clear Calc 110 Estimated GFR > 60 Glucose 108 Calcium 7.9 L Ferritin 1640.00 H Total Bilirubin 0.4 AST
== END 2021-04-19 11:50 | disposition home or self-care (01) | DRG 177 ==
LOC: ANHED 23:25 → ANH3MEDSUR 04-17 08:10
PROVIDERS: Admitting Provider Internal Medicine; Emergency Provider Emergency Medicine; PCP Family Medicine; Visit Provider Internal Medicine
DX: U07.1 COVID-19 (principal); J12.82 Pneumonia due to coronavirus disease 2019; E87.1 Hypo-osmolality and hyponatremia; M62.82 Rhabdomyolysis; R74.8 Abnormal levels of other serum enzymes; E86.0 Dehydration; R79.89 Other specified abnormal findings of blood chemistry; K21.9 Gastro-esophageal reflux disease without esophagitis; M17.12 Unilateral primary osteoarthritis, left knee; G47.33 Obstructive sleep apnea (adult) (pediatric); Z99.89 Dependence on other enabling machines and devices; Z79.899 Other long term (current) drug therapy
CPT/HCPCS: 36415; 71045; 71275; 80053; 80074; 81001; 82550; 82728; 83605; 83615; 84484; 85025; 85380; 85610; 85730; 86140; 93005; 96360; 96361; 96365; 96375; 99285; A9270; G0378; J0131; J1650; J1940; J2405; J7030; Q9967

== ENCOUNTER 2021-04-21 10:47 | Outpatient (CLI) | payer OTHER, SELFPAY ==
--- NOTE | ~2021-04-21 | XR_ITS ---
EXAMINATION: XR chest 2V EXAM DATE: 04/21/2021 11:20 INDICATION: U07.1 - COVID-19 follow-up. Persistent shortness of breath. TECHNIQUE: Frontal and lateral projections of the chest obtained and reviewed. Comparison is made to prior examination from 04/18/2021. FINDINGS: Previously seen mid and lower lung zone opacities now have somewhat more linear appearance consistent with subacute stage of COVID pneumonia. No progression in scope of disease. No pneumothora x or pleural effusion. Cardiomediastinal silhouette is normal. IMPRESSION: Subacute COVID pneumonia without progression. Reviewed, dictated and finalized at location A. UCT TESTER
== END 2021-04-21 10:48 | disposition home or self-care (01) ==
PROVIDERS: PCP Family Medicine; Visit Provider Family Medicine
DX: U07.1 COVID-19 (principal); J12.82 Pneumonia due to coronavirus disease 2019
CPT/HCPCS: 71046

== ENCOUNTER → 2021-04-23 10:08 | Outpatient (CLI) | payer OTHER, SELFPAY ==
--- NOTE | ~2021-04-23 | XR_ITS ---
EXAMINATION: XR heel RT min 2V DATE: 04/23/2021 10:30 INDICATION: Right foot pain. TECHNIQUE: 2 views of right calcaneus were obtained. COMPARISON: Right foot radiographs 12/31/2020 FINDINGS: Bone alignment is normal. No fracture. Joint spaces are well maintained. IMPRESSION: 1. Normal right calcaneus. Reviewed, dictated and finalized at location A. EY KNITTER IMPRESSION: 1. Normal right calcaneus.
== END ==
PROVIDERS: PCP Family Medicine; Visit Provider Family Medicine
DX: M79.671 Pain in right foot (principal)
CPT/HCPCS: 73650

== ENCOUNTER 2021-04-26 08:35 | Outpatient (CLI) | payer OTHER, SELFPAY ==
[2021-04-26 09:31] LABS: Basophils Absolute Auto 0.1 K/mm3 (0.0-0.1); Eosinophils Absolute Auto 0.2 K/mm3 (0-0.3); Eosinophils Percent Auto 3.7 % (0-4.4); Hematocrit 43.8 % (42.0-52.0); Hemoglobin 14.3 g/dL (14.0-18.0); Immature Granulocyte Percent A 1.6 % (0-0.5); Lymphocytes Absolute Auto 1.48 K/mm3 (0.9-3.2); Lymphocytes Percent Auto 24.1 % (18.3-44.2); Mean Corpuscular HGB Conc 32.6 g/dl (32-36); Mean Corpuscular Hemoglobin 30.4 pg (26-34); Mean Platelet Volume 9.2 fl (7.4-10.4); Monocytes Absolute Auto 0.8 K/mm3 (0.1-0.6); Monocytes Percent Auto 12.7 % (2.6-8.5); Neutrophils Absolute Auto 3.5 K/mm3 (1.3-6.7); Neutrophils Percent Auto 56.9 % (45.5-73.1); Platelet Count Result 428 k/mm3 (150-375); Red Blood Count 4.71 M/mm3 (4.6-6.20); Red Cell Distribution Width 12.9 % (11.5-14.5); White Blood Count 6.2 K/mm3 (4.5-10.0)
[2021-04-26 09:33] LABS: Cholesterol 163 mg/dL (0-200); HDL Direct 32 mg/dL; Triglycerides 165 mg/dL (<150)
[2021-04-26 09:37] LABS: Alanine Aminotransferase 54 U/L (4-50); Albumin Level 3.9 g/dL (3.5-5.1); Alkaline Phosphatase 77 U/L (38-126); Anion Gap 7 mmol/L (8-16); Aspartate Amino Transferase 35 U/L (17-59); Bilirubin,Total 0.5 mg/dL (0.2-1.3); Blood Urea Nitrogen 12 mg/dL (9-20); Carbon Dioxide 24 mmol/L (22-30); Chloride 104 mmol/L (98-107); Creatine Kinase 225 U/L (55-170); Estimated Glomerular Filt Rate > 60; Glucose 120 mg/dL (65-110); Potassium 4.4 mmol/L (3.4-5.0); Sodium 135 mmol/L (137-145)
[2021-04-26 09:44] LABS: LDL Cholesterol Direct 90 mg/dL
[2021-04-26 10:02] LABS: Prostate Specific Antigen 0.7 ng/mL (< OR = 4.0)
== END 2021-04-26 08:36 | disposition home or self-care (01) ==
PROVIDERS: PCP Family Medicine; Visit Provider Internal Medicine
DX: E78.2 Mixed hyperlipidemia (principal); D51.9 Vitamin B12 deficiency anemia, unspecified; Z12.5 Encounter for screening for malignant neoplasm of prostate; R79.89 Other specified abnormal findings of blood chemistry; M62.82 Rhabdomyolysis
CPT/HCPCS: 36415; 80053; 80061; 82550; 82607; 84153; 84443; 85025; G0103

== ENCOUNTER 2022-05-09 09:15 | Outpatient (CLI) | payer OTHER, SELFPAY ==
[2022-05-09 09:42] LABS: Basophils Absolute Auto 0.1 K/mm3 (0.0-0.1); Basophils Percent Auto 0.8 % (0.2-1.2); Eosinophils Absolute Auto 0.2 K/mm3 (0-0.3); Eosinophils Percent Auto 2.7 % (0-4.4); Hematocrit 45.9 % (42.0-52.0); Hemoglobin 15.5 g/dL (14.0-18.0); Immature Granulocyte Absolute 0.01 K/mm3 (0.00-0.031); Immature Granulocyte Percent A 0.2 % (0-0.5); Lymphocytes Absolute Auto 1.47 K/mm3 (0.9-3.2); Lymphocytes Percent Auto 22.9 % (18.3-44.2); Mean Corpuscular HGB Conc 33.8 g/dl (32-36); Mean Corpuscular Hemoglobin 31.4 pg (26-34); Mean Corpuscular Volume 93.1 fl (80-100); Mean Platelet Volume 9.6 fl (7.4-10.4); Monocytes Absolute Auto 0.8 K/mm3 (0.1-0.6); Monocytes Percent Auto 11.7 % (2.6-8.5); Neutrophils Percent Auto 61.7 % (45.5-73.1); Platelet Count Result 237 k/mm3 (150-375); Red Blood Count 4.93 M/mm3 (4.6-6.20); Red Cell Distribution Width 12.7 % (11.5-14.5); White Blood Count 6.4 K/mm3 (4.5-10.0)
[2022-05-09 09:57] LABS: Alanine Aminotransferase 46 U/L (6-50); Albumin Level 4.4 g/dL (3.5-5.1); Alkaline Phosphatase 80 U/L (38-126); Anion Gap 7 mmol/L (8-16); Aspartate Amino Transferase 33 U/L (17-59); Bilirubin,Total 0.5 mg/dL (0.2-1.3); Blood Urea Nitrogen 17 mg/dL (9-20); Carbon Dioxide 27 mmol/L (22-30); Chloride 105 mmol/L (98-107); Cholesterol 192 mg/dL (0-200); Creatine Kinase 140 U/L (55-170); Estimated Glomerular Filt Rate > 60; Glucose 107 mg/dL (65-110); HDL Direct 54 mg/dL; Sodium 139 mmol/L (137-145); Triglycerides 98 mg/dL (<150)
[2022-05-09 10:08] LABS: LDL Cholesterol Direct 96 mg/dL
[2022-05-09 10:27] LABS: Prostate Specific Antigen 0.7 ng/mL (< OR = 4.0)
[2022-05-09 10:49] LABS: Iron 65 ug/dL (49-181)
[2022-05-09 10:50] LABS: Hemoglobin A1C 5.5 % (<5.7)
[2022-05-09 10:59] LABS: Percent Iron Saturation 20 % (20-50)
[2022-05-09 11:02] LABS: Folic Acid 19.7 ng/mL (2.76->20)
[2022-05-15 11:22] LABS: Testosterone Free 77.2 pg/mL (35.0-155.0); Testosterone Total 468 ng/dL (250-1100)
== END 2022-05-09 09:16 | disposition home or self-care (01) ==
LOC: ANHLAB 09:18
PROVIDERS: PCP Family Medicine; Visit Provider Nurse Practitioner Family
DX: E78.2 Mixed hyperlipidemia (principal); R74.8 Abnormal levels of other serum enzymes; R73.01 Impaired fasting glucose; R79.89 Other specified abnormal findings of blood chemistry; D51.9 Vitamin B12 deficiency anemia, unspecified; Z12.5 Encounter for screening for malignant neoplasm of prostate
CPT/HCPCS: 36415; 80053; 80061; 82550; 82607; 82728; 82746; 83036; 83540; 83550; 84153; 84402; 84403; 84443; 85025; G0103

== ENCOUNTER 2023-04-10 00:57 | Day surgery (SDC) | payer OTHER, SELFPAY ==
--- NOTE | 2023-04-08 09:50 | SUR.PREOP ---
Patient called regarding upcoming procedure. Reviewed preop instructions, appointment times, and procedure prep.
--- NOTE | 2023-04-09 14:03 | PM.HPGS ---
History of Present Illness History of Present Illness Consent: Risks, benefits, and alternatives have been discussed and questions answered. Patient agrees to proceed with procedure. 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 He has a family history of colon cancer. His father had colon cancer. Also, he has had polyps removed on 3 separate colonoscopies, the most recent being in 2017. Review of Systems Review of Systems: All systems reviewed & are unremarkable except as noted in HPI and below PMFSH Past Medical History Medical History Abnormal fasting glucose Fasting glucose 104 on 02/11/2020. Fasting glucose 107 with hemoglobin A1c 5.5 05/09/2022. Acute non-recurrent maxillary sinusitis Acute pain of right foot COVID-19 (~04/06/21) rapid test positive for 04/08/2021 0730 COVID-19 (11/06/21) mild symptoms starting the evening 11/06/2021 with negative test and positive test on 11/07/2021. COVID-19 (02/04/23) 3rd episode with mild symptoms starting 02/04/2023 with negative COVID test. Tested positive 02/05/2023. Severe fatigue, weakness, arthralgias, Myalgias,slight cough. Elevated CPK Elevated ferritin level secondary to COVID infection, resolved Elevated LFTs Encounter for prostate cancer screening Encounter for screening for other viral diseases Encounter for wellness examination in adult Exposure to COVID-19 virus Exposure to influenza Family history of colon cancer in father Hypogonadism male Total testosterone 394 with free testosterone 63.4 on 11/26/2018. Testosterone 468 with free testosterone 77.2 on 05/09/2022. Infected tick bite of neck (09/02/20) Mixed hyperlipidemia Myositis ossificans KHURRAM on CPAP Osteoarthritis of left knee Otitis externa in other diseases classified elsewhere, right ear (10/13/20) Pain in right forearm Pain of right heel (04/22/21) Pes anserinus bursitis of left knee Pneumonia due to COVID-19 virus Polyp of colon (08/12/99) normal colonoscopy 02/18/1995, 2 polyps on 08/12/1999, polyp on 08/15/2005, 3 polyps on 02/22/2010, 2 polyps on 04/30/2017 Renal stone passed asymptomatic 2 x 3 mm stone 11/03/2022. Rhabdomyolysis secondary to COVID-19 Shortness of breath on exertion Thoracic radiculitis Vitamin B12 deficiency anemia Family History Family History Father Acute myocardial infarction Colon cancer Mother Hypertension Social History Social History Smoking status: Never smoker Alcohol intake: never Substance use: never Substance use type: does not use Living arrangements: with family Gender identity (if verbalized by the patient): Male Spiritual care concerns: No Meds Home Medications and Allergies Home Medications Medication Instructions Recorded Confirmed Type famotidine-Ca carb-mag hydrox 10 1 tablet PO PRN PRN Acid Reflux 03/27/23 03/27/23 History mg-800 mg-165 mg chewable tablet (Pepcid Complete) Allergies Allergy/AdvReac Type Severity Reaction Status Date / Time No Known Allergies Allergy Verified 03/27/23 14:38 Exam Const: General: alert Orientation/consciousness: patient oriented x3 Resp: Auscultation: clear to auscultation bilaterally Cardio: Rate: regular rate Rhythm: regular rhythm GI: GI Palp: Yes Soft to palpation and No Tenderness to palpation present (GI) Neuro: General: patient oriented x3 Assessment and Plan Assessment and plan (1) Colon cancer screening: Code(s): Z12.11 - Encounter for screening for malignant neoplasm of colon Status: Acute Assessment and Plan: Colonoscopy with possible biopsy or polypectomy or cautery or injection of substances.
[2023-04-10 10:38] VITALS: BP 119/81; PULSE 88; RESP 20; TEMP 36.4; O2SAT 100; BMI 29.8
[2023-04-10] MEDS: LACTATED RINGERS 1,000 ML 150 ML IV CONT (10:55)
--- NOTE | 2023-04-10 11:04 | WPDANESEPPF ---
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 Patient Data Age: 62 Gender: M Height: 1.65 m Weight: 81.4 kg Last Vital Signs Temp 97.5 F L 04/10/23 10:38 Pulse 88 04/10/23 10:38 Resp 20 04/10/23 10:38 BP 119/81 04/10/23 10:38 Pulse Ox 100 04/10/23 10:38 O2 Del Method Room Air 04/10/23 10:38 Allergies Allergy/AdvReac Type Severity Reaction Status Date / Time No Known Allergies Allergy Verified 03/27/23 14:38 Home Medications Medication Instructions Recorded Confirmed Type famotidine-Ca carb-mag hydrox 10 1 tablet PO PRN PRN Acid Reflux 03/27/23 03/27/23 History mg-800 mg-165 mg chewable tablet (Pepcid Complete) magnesium 500 mg tablet mg PO 04/10/23 04/10/23 History Patient hx anesthesia problems: none Family hx anesthesia problems: none Results Review: All pre-operative results and documents have been reviewed as part of the pre-operative evaluation. [facility] Past Medical History Medical History Abnormal fasting glucose Fasting glucose 104 on 02/11/2020. Fasting glucose 107 with hemoglobin A1c 5.5 05/09/2022. Acute non-recurrent maxillary sinusitis Acute pain of right foot COVID-19 (~04/06/21) rapid test positive for 04/08/2021 0730 COVID-19 (11/06/21) mild symptoms starting the evening 11/06/2021 with negative test and positive test on 11/07/2021. COVID-19 (02/04/23) 3rd episode with mild symptoms starting 02/04/2023 with negative COVID test. Tested positive 02/05/2023. Severe fatigue, weakness, arthralgias, Myalgias,slight cough. Elevated CPK Elevated ferritin level secondary to COVID infection, resolved Elevated LFTs Encounter for prostate cancer screening Encounter for screening for other viral diseases Encounter for wellness examination in adult Exposure to COVID-19 virus Exposure to influenza Family history of colon cancer in father Hypogonadism male Total testosterone 394 with free testosterone 63.4 on 11/26/2018. Testosterone 468 with free testosterone 77.2 on 05/09/2022. Infected tick bite of neck (09/02/20) Mixed hyperlipidemia Myositis ossificans KHURRAM on CPAP Osteoarthritis of left knee Otitis externa in other diseases classified elsewhere, right ear (10/13/20) Pain in right forearm Pain of right heel (04/22/21) Pes anserinus bursitis of left knee Pneumonia due to COVID-19 virus Polyp of colon (08/12/99) normal colonoscopy 02/18/1995, 2 polyps on 08/12/1999, polyp on 08/15/2005, 3 polyps on 02/22/2010, 2 polyps on 04/30/2017 Renal stone passed asymptomatic 2 x 3 mm stone 11/03/2022. Rhabdomyolysis secondary to COVID-19 Shortness of breath on exertion Thoracic radiculitis Vitamin B12 deficiency anemia Family History Family History Father Acute myocardial infarction Colon cancer Mother Hypertension Social History Social History Smoking status: Never smoker Alcohol intake: never Substance use: never Substance use type: does not use Living arrangements: with family Gender identity (if verbalized by the patient): Male Spiritual care concerns: No Anes - Eval Final PreProcedure Day of Procedure 04/10/23 11:04 Patient weight: normal Heart: regular rate and rhythm Lungs: clear to auscultation Airway: Mallampati scale class II Neurological: alert and oriented Last oral intake: >/= 8 hours ASA classification: II Emergent: no Anesthetic plan: proceed Anesthesia type and monitoring: general GIVS and standard monitoring Results Review: All pre-operative results and documents have been reviewed as part of the pre-operative evaluation. Informed Consent: T
[2023-04-10 11:33] VITALS: BP 97/62; PULSE 85; RESP 24; O2SAT 97
[2023-04-10 11:43] VITALS: BP 107/67; PULSE 82; RESP 22; O2SAT 97
[2023-04-10 11:53] VITALS: BP 109/75; PULSE 79; RESP 16; O2SAT 99
== END 2023-04-10 12:00 | disposition home or self-care (01) ==
PROVIDERS: PCP Family Medicine; Visit Provider Internal Medicine Gastroenterology
PROC: 0DJD8ZZ Inspection of Lower Intestinal Tract, Via Natural or Artificial Opening Endoscopic (ICD-10-PCS; CPT 45378; principal; 2023-04-10 11:30)
DX: Z12.11 Encounter for screening for malignant neoplasm of colon (principal); E78.2 Mixed hyperlipidemia; E53.8 Deficiency of other specified B group vitamins; G47.33 Obstructive sleep apnea (adult) (pediatric); Z99.89 Dependence on other enabling machines and devices; Z86.010 Personal history of colon polyps; Z80.0 Family history of malignant neoplasm of digestive organs; Z82.49 Family history of ischemic heart disease and other diseases of the circulatory system
CPT/HCPCS: 45378; J2704; J7120

== ENCOUNTER 2023-05-18 10:08 | Outpatient (CLI) | payer OTHER, SELFPAY ==
[2023-05-18 11:01] LABS: Influenza A QL RT-PCR Positive (Negative); Influenza B QL RT-PCR Negative (Negative); RSV RNA, RT-PCR Negative (Negative); SARS-CoV-2 RNA PCR Negative (Negative)
== END 2023-05-18 10:09 | disposition home or self-care (01) ==
LOC: ANHLAB 10:09
PROVIDERS: PCP Family Medicine; Visit Provider Nurse Practitioner Family
DX: R68.89 Other general symptoms and signs (principal); Z20.822 Contact with and (suspected) exposure to COVID-19
CPT/HCPCS: 87637

== ENCOUNTER → 2023-07-23 12:06 | Outpatient (CLI) | payer OTHER, SELFPAY ==
--- NOTE | ~2023-07-23 | XR_ITS ---
EXAMINATION: XR foot LT min 3V DATE: 07/23/2023 12:20 INDICATION: Left foot pain TECHNIQUE: Dorsoplantar, two oblique and lateral views of the left foot were obtained. COMPARISON: None. FINDINGS: Alignment is normal. No fracture. Minimal to mild polyarticular osteoarthritis at the first metatarso phalangeal and several tarsal metatarsal and interphalangeal joints. No cortical erosions or perioste al reaction. Soft tissues are unremarkable. IMPRESSION: 1. Typical pattern of minimal to mild polyarticular osteoarthritis the left mid and forefoot. Reviewed, dictated and finalized at location L.
== END ==
PROVIDERS: PCP Nurse Practitioner Family; Visit Provider Nurse Practitioner Family
DX: M19.072 Primary osteoarthritis, left ankle and foot (principal)
CPT/HCPCS: 73630

== ENCOUNTER 2023-08-21 12:11 | Outpatient (CLI) | payer OTHER, SELFPAY ==
[2023-08-21 12:47] LABS: Basophils Absolute Auto 0.1 K/mm3 (0.0-0.1); Basophils Percent Auto 0.8 % (0.2-1.2); Eosinophils Absolute Auto 0.2 K/mm3 (0-0.3); Eosinophils Percent Auto 2.6 % (0-4.4); Hematocrit 51.4 % (42.0-52.0); Hemoglobin 16.9 g/dL (14.0-18.0); Immature Granulocyte Absolute 0.02 K/mm3 (0.00-0.031); Immature Granulocyte Percent A 0.3 % (0-0.5); Lymphocytes Absolute Auto 2.21 K/mm3 (0.9-3.2); Lymphocytes Percent Auto 33.6 % (18.3-44.2); Mean Corpuscular HGB Conc 32.9 g/dl (32-36); Mean Corpuscular Hemoglobin 30.5 pg (26-34); Mean Corpuscular Volume 92.8 fl (80-100); Mean Platelet Volume 9.4 fl (7.4-10.4); Monocytes Absolute Auto 0.6 K/mm3 (0.1-0.6); Monocytes Percent Auto 8.8 % (2.6-8.5); Neutrophils Absolute Auto 3.6 K/mm3 (1.3-6.7); Neutrophils Percent Auto 53.9 % (45.5-73.1); Platelet Count Result 284 k/mm3 (150-375); Red Blood Count 5.54 M/mm3 (4.6-6.20); Red Cell Distribution Width 13.1 % (11.5-14.5); White Blood Count 6.6 K/mm3 (4.5-10.0)
[2023-08-21 13:01] LABS: Alanine Aminotransferase 29 U/L (6-50); Albumin Level 4.9 g/dL (3.5-5.1); Alkaline Phosphatase 68 U/L (38-126); Anion Gap 8 mmol/L (4-12); Aspartate Amino Transferase 30 U/L (17-59); Bilirubin,Total 0.7 mg/dL (0.2-1.3); Blood Urea Nitrogen 13 mg/dL (9-20); Calcium 9.9 mg/dL (8.4-10.2); Carbon Dioxide 26 mmol/L (22-30); Chloride 106 mmol/L (98-107); Cholesterol 174 mg/dL (0-200); Estimated Glomerular Filt Rate > 60; Glucose 91 mg/dL (65-110); HDL Direct 65 mg/dL; Potassium 3.9 mmol/L (3.4-5.0); Sodium 140 mmol/L (137-145); Triglycerides 91 mg/dL (<150)
[2023-08-21 13:13] LABS: LDL Cholesterol Direct 89 mg/dL
[2023-08-21 13:28] LABS: Prostate Specific Antigen 0.8 ng/mL (< OR = 4.0)
[2023-08-21 14:42] LABS: Hemoglobin A1C 5.1 % (<5.7)
[2023-08-28 12:23] LABS: Testosterone Free 80.5 pg/mL (35.0-155.0); Testosterone Total 518 ng/dL (250-1100)
== END 2023-08-21 12:12 | disposition home or self-care (01) ==
LOC: ANHLAB 12:12
PROVIDERS: PCP Nurse Practitioner Family; Visit Provider Nurse Practitioner Family
DX: D51.9 Vitamin B12 deficiency anemia, unspecified (principal); E78.2 Mixed hyperlipidemia; R73.01 Impaired fasting glucose; Z12.5 Encounter for screening for malignant neoplasm of prostate
CPT/HCPCS: 36415; 80053; 80061; 82607; 83036; 84153; 84402; 84403; 84443; 85025; G0103

== ENCOUNTER 2024-08-30 12:38 | Outpatient (CLI) | payer OTHER, SELFPAY ==
--- OUTSIDE RECORDS SUMMARY | 2024-08-30 14:07 | XMS_ITS | Clinical Summary ---
Author Organization [facility] [address] Address [address] [place] [address] Care Team Providers Care Wirer Name Role Phone Kim Ziegler CAROLINE Primary Care Provider [phone] Allergies No known active allergies Medications meloxicam (MOBIC) 15 mg tablet Take 15 mg by mouth daily as needed for pain Active sildenafiL (VIAGRA) 100 mg tablet Take 100 mg by mouth daily as needed for erectile dysfunction Active famotidine-Ca carb-mag hydrox (PEPCID COMPLETE) 10-800-165 mg chewable tablet Take 1 tablet by mouth daily as needed for heartburn Active Active Problems Problem Noted Date Diagnosed Date Precordial pain 01/18/2021 Surgical History Surgery Date Site/Laterality Comments CORONARY ANGIOPLASTY BICEPS TENDON REPAIR POSTERIOR LAMINECTOMY / DECOMPRESSION LUMBAR SPINE APPENDECTOMY Medical History Medical History Date Comments Sleep apnea GERD (gastroesophageal reflux disease) Family History Medical History Relation Name Comments Colon cancer Father Heart attack Father Hyperlipidemia Mother Hypertension Mother Relation Name Status Comments Father (Age 70) Mother Alive Social History Tobacco Use Types Packs/Day Years Used Date Smoking Tobacco: Never Smokeless Tobacco: Never Personal Safety Answer Date Recorded Getting School Help Needed Not on file 07/23 Sex and Gender Information Value Date Recorded Sex Assigned at Not on file 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 Gender Identity Not on file Sexual Orientation Not on file Obstetrics History Last Filed Vital Signs Vital Sign Reading Time Taken Comments Blood Pressure 120/86 01/18/2021 7:35 AM CDT Pulse 80 01/18/2021 7:35 AM CDT Temperature - - Respiratory Rate - - Oxygen Saturation 96% 01/18/2021 7:35 AM CDT Inhaled Oxygen Concentration - - Weight 109.3 kg (241 lb) 01/18/2021 7:35 AM CDT Height 165.1 cm (5' 5 ) 01/18/2021 7:35 AM CDT Body Mass Index 40.1 01/18/2021 7:35 AM CDT Plan of Treatment Not on file Insurance Care Teams Wirer Relationship Specialty Start Date End Date Kim Ziegler NP PCP - General Family Medicine 08/24/20
--- OUTSIDE RECORDS SUMMARY | 2024-08-30 14:07 | XMS_ITS | Continuity of Care Document ---
Author Organization [facility] Address [address] [place] [address] Phone Care Team Providers Care School Of Nursing Director Name Role Phone Griffin OD, Morris Unavailable Unavailable Procedures Procedure Date No Charge Glasses Check No Charge Glasses Check Eye Exam & Treatment Refraction No Charge Glasses Check Advance Directives Directive Yes / No Effective Date File Name No Information Encounters Encounter Description Practice Location Reason(s) For Visit Diagnoses Date Provider Providers Copied on Encounter [facility], [address] [place] [address] [address], [place], [place], [id number], tel:[phone] [facility] No Information 7-201 0 Griffin OD Morris. [address], [place], [place], [facility], . tel:[phone] [facility], [address] [place] [address] [address], [place], [place], [id number], [place] tel:[phone] [facility] No Information 8-200 9 Griffin OD Morris. [address] , [address], [place], [place], [facility], . tel:[phone] [facility], [address] [place] [address] [address], [place], [place], [id number], tel:[phone] [facility] No Information 5-200 8 Griffin OD Morris. [address] , [address], [place], [address], [place]. tel:[phone] [facility], [address], [place], [place], [id number], [place] tel:[phone] [facility] No Information Mar-2 3-200 7 Griffin OD Morris. [address] [facility] , [address], [place], [address], [place]. tel:[phone] Family History Family Member Type Diagnosis Age [...]
--- OUTSIDE RECORDS SUMMARY | 2024-08-30 14:07 | XMS_ITS | Referral Summary ---
Author Organization [facility] [address] Address [address] [place] [address] Care Team Providers Care Multiple Tube Winding Machine Operator Name Role Phone Kim Ziegler CAROLINE Primary Care Provider [phone] Allergies No known active allergies Medications meloxicam [...] Noted Date Diagnosed Date Precordial pain 01/18/2021 Social History Tobacco Use Types Packs/Day Years Used Date Smoking Tobacco: Never Smokeless Tobacco: Never Personal Safety Answer Date Recorded Getting School Help Needed Not on file 07/23 Sex and Gender Information Value Date Recorded Sex Assigned at Not on file 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
--- OUTSIDE RECORDS SUMMARY | 2024-08-30 14:07 | XMS_ITS | Clinical Summary ---
Author Organization [facility] Address [address], [address] [address] Phone Care Team Providers Care Estate Agent Name Role Phone Aki Person MD Primary Care Provider [phone] Social History Tobacco Use Types Packs/Day Years Used Date Smoking Tobacco: Never Assessed Sex and Gender Information Value Date Recorded Sex Assigned at Not on file Legal Sex Male 10:28 PM CDT Gender Identity Not on file Sexual Orientation Not on file Plan of Treatment Health Maintenance Due Date Last Done Comments Hepatitis C Virus (HCV) Screening 1960 TdaP Immunization 1960 Cologuard 12/20/2011 Immunochemical Fecal Occult Blood 12/20/2011 Pneumococcal Immunization (5 0+ years) (1 of 1 - PCV) 12/20/2011 Zoster Immunization (1 of 2) 12/20/2011 PSA Discussion 2016 Colonoscopy 04/30/2022 04/30/2017 Colorectal Cancer Screening 04/30/2022 Influenza Immunization (#1) 2024 SARS-COV-2 Immunization ( season) 2024 Respiratory Syncytial Virus (RSV) Immunization (Adult) (1 - 1-dose 75+ series) 2036 04/30/2017 Hepatitis B Immunization Aged Out No longer eligible based on patient's age to complete this topic Meningococcal Immunization (ACWY) Aged Out No longer eligible based on patient's age to complete this topic Pneumococcal Immunization Combined Aged Out No longer eligible based on patient's age to complete this topic Rotavirus Immunization Aged Out No lo nger eligible based on patient's age to complete this topic Procedures Procedure Name Priority Date/Time Associated Diagnosis Comments COLONOSCOPY Routine 04/30/2017 from Last 3 Months or Most Recently Relevant to Health Maintenance Results * COLONOSCOPY (04/30/2017) Morris Cervantes DO PROCEDURE/MINOR SURGICAL ORDERA BLES Final Result from Last 3 Months or Most Recently Relevant to Health Maintenance Care Teams Estate Agent Relationship Specialty Start Date End Date Aki Person MD [address] [place] [address] PCP - General Rand Sewer 01/02/17
--- NOTE | 2024-08-30 15:00 | NEURO_ITS ---
Impression: # Complains of numbness and decrease in strength of hands. Non- diabetic. ? # Bilateral ulnar neuropathy across the elbows. ? # Evolving bilateral Carpal Tunnel Syndrome. ? # Needle/EMG exam mildly abnormal in 1st DI and Abd Dig Min. Nerve Conduction Studies Anti Sensory Summary Table ?Stim Site NR Peak (ms) P-T Amp (?V) Site1 Site2 Delta-P (ms) Dist (cm) Bear (m/s) Left Median Anti Sensory (2-3nd Digit) Wrist ? 3.4 48.6 Wrist 2-3nd Digit 3.4 14.0 41 Wrist ? 3.3 23.9 Wrist 2-3nd Digit 3.4 14.0 41 Right Median Anti Sensory (2-3nd Digit) Wrist ? 3.4 41.3 Wrist 2-3nd Digit 3.4 14.0 41 Wrist ? 3.3 51.4 Wrist 2-3nd Digit 3.4 14.0 41 Left Radial Anti Sensory (Base 1st Digit) Wrist ? 2.0 36.5 Wrist Base 1st Digit 2.0 0.0 Right Radial Anti Sensory (Base 1st Digit) Wrist ? 2.6 23.1 Wrist Base 1st Digit 2.6 0.0 Left Ulnar Anti Sensory (5th Digit) Wrist ? 2.6 58.7 Wrist 5th Digit 2.6 14.0 54 Right Ulnar Anti Sensory (5th Digit) Wrist ? 2.2 51.8 Wrist 5th Digit 2.2 14.0 64 Motor Summary Table ?Stim Site NR Onset (ms) O-P Amp (mV) Site1 Site2 Delta-0 (ms) Dist (cm) Bear (m/s) Left Median Motor (Abd Poll Brev) Wrist ? 3.8 2.7 Elbow Wrist 4.8 29.0 60 Elbow ? 8.6 2.7 Right Median Motor (Abd Poll Brev) Wrist ? 3.9 2.2 Elbow Wrist 4.9 29.0 59 Elbow ? 8.8 4.0 Left Ulnar Motor (Abd Dig Minimi) Wrist ? 2.6 5.5 A Elbow Wrist 6.6 30.0 45 A Elbow ? 9.2 5.0 B Elbow Wrist 3.7 21.0 57 B Elbow ? 6.3 5.0 Right Ulnar Motor (Abd Dig Minimi) Wrist ? 2.3 5.6 A Elbow Wrist 5.5 29.0 53 A Elbow ? 7.8 6.9 B Elbow Wrist 3.6 21.0 58 B Elbow ? 5.9 6.8 F Wave Studies ?NR F-Lat (ms) L-R F-Lat (ms) Left Median (Mrkrs) (Abd Poll Brev) ? 27.95 1.47 Right Median (Mrkrs) (Abd Poll Brev) ? 26.48 1.47 Left Ulnar (Mrkrs) (Abd Dig Min) ? 27.68 0.74 Right Ulnar (Mrkrs) (Abd Dig Min) ? 26.94 0.74 EMG ?Side Muscle Nerve Root Ins Act Fibs Amp Dur Recrt Comment Right 1stDorInt Ulnar C8-T1 Nml Nml Nml >12ms +1 Right Ext Indicis Radial (Post Int) C7-8 Nml Nml Nml Nml Nml Right Ext Digitorum Radial (Post Int) C7-8 Nml Nml Nml Nml Nml Right BrachioRad Radial C5-6 Nml Nml Nml Nml Nml Right PronatorTeres Median C6-7 Nml Nml Nml Nml Nml Right Abd Poll Brev Median C8-T1 Nml Nml Nml Nml Nml Right ABD Dig Min Ulnar C8-T1 Nml Nml Nml >12ms +1 Right FlexPolLong Median (Ant Int) C7-8 Nml Nml Nml Nml Nml Right Abd Poll Long Radial (Post Int) C7-8 Nml Nml Nml Nml Nml Left FlexPolLong Median C8-T1 Nml Nml Nml Nml Nml Left Abd Poll Long Radial (Post Int) C7-8 Nml Nml Nml Nml Nml Left 1stDorInt Ulnar C8-T1 Nml Nml Nml >12ms +1 Left Ext Indicis Radial (Post Int) C7-8 Nml Nml Nml Nml Nml Left Ext Digitorum Radial (Post Int) C7-8 Nml Nml Nml Nml Nml Left BrachioRad Radial C5-6 Nml Nml Nml Nml Nml Left PronatorTeres Median C6-7 Nml Nml Nml Nml Nml Left Abd Poll Brev Median C8-T1 Nml Nml Nml Nml Nml Left ABD Dig Min Ulnar C8-T1 Nml Nml Nml >12ms +1 MTDD
== END 2024-08-30 12:39 | disposition home or self-care (01) ==
LOC: ANHNEURO 12:38
PROVIDERS: PCP Nurse Practitioner Family; Visit Provider Nurse Practitioner Family
DX: G56.23 Lesion of ulnar nerve, bilateral upper limbs (principal); G56.03 Carpal tunnel syndrome, bilateral upper limbs; R94.131 Abnormal electromyogram [EMG]
CPT/HCPCS: 95886; 95911

== ENCOUNTER 2024-09-16 08:28 | Outpatient (CLI) | payer OTHER, SELFPAY ==
--- OUTSIDE RECORDS SUMMARY | 2024-09-16 08:31 | XMS_ITS | Continuity of Care Document ---
Author Organization [facility] [place] [address] [place] [address] Phone Care Team Providers Care Casework Manager Name Role Phone Griffin OD, Morris Unavailable Unavailable Procedures Procedure Date No Charge Glasses Check No Charge Glasses Check Eye Exam & Treatment Refraction No Charge Glasses Check Advance Directives Directive Yes / No Effective Date File Name No Information Encounters Encounter Description Practice Location Reason(s) For Visit Diagnoses Date Provider Providers Copied on Encounter [facility], [address] [place] [address] [address], [place], [place], [id number], tel:[phone] [facility] No Information 7-201 0 Griffin OD Morris. [address], [place], [place], [facility], . tel:[phone] [facility], [address] [place] [address] [address], [place], [place], [address], [place] tel:[phone] [facility] No Information 8-200 9 Griffin OD Morris. [address], [place], [place], [facility], . tel:[phone] [facility], [address] [place] [address] [address], [place], [place], [address], tel:[phone] [facility] No Information 5-200 8 Griffin OD Morris. [address], [place], [address], [place]. tel:[phone] [facility], [address], [place], [place], [address], [place] tel:[phone] [facility] No Information Mar-2 3-200 7 Griffin OD Morris. [address] [facility] , [address], [place], [address], [place]. tel:[phone] Family History Family Member Type Diagnosis Age At Onset No Information Payers Payer name Insurance type Covered libertarian ID Authoriza tion(s) No Information Social History [...]
--- OUTSIDE RECORDS SUMMARY | 2024-09-16 08:31 | XMS_ITS | Clinical Summary ---
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
--- OUTSIDE RECORDS SUMMARY | 2024-09-16 08:31 | XMS_ITS | Clinical Summary ---
Author Organization [facility] Address [address], [address] [address] Phone Care Team Providers Care Wire Coiner Name Role Phone Aki Person MD Primary Care Provider [phone] Social History Tobacco Use Types Packs/Day Years [...] Recently Relevant to Health Maintenance Care Teams Wire Coiner Relationship Specialty Start Date End Date Aki Person MD [address] [place] [address] PCP - General Fabrication Specialist 01/02/17
--- OUTSIDE RECORDS SUMMARY | 2024-09-16 08:31 | XMS_ITS | Referral Summary ---
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
[2024-09-16 09:21] LABS: Basophils Absolute Auto 0.1 K/mm3 (0.0-0.1); Basophils Percent Auto 0.8 % (0.2-1.2); Eosinophils Absolute Auto 0.1 K/mm3 (0-0.3); Eosinophils Percent Auto 1.8 % (0-4.4); Hemoglobin 16.5 g/dL (14.0-18.0); Immature Granulocyte Absolute 0.02 K/mm3 (0.00-0.031); Immature Granulocyte Percent A 0.3 % (0-0.5); Lymphocytes Absolute Auto 1.59 K/mm3 (0.9-3.2); Lymphocytes Percent Auto 22.1 % (18.3-44.2); Mean Corpuscular Hemoglobin 30.7 pg (26-34); Mean Corpuscular Volume 92.9 fl (80-100); Mean Platelet Volume 9.4 fl (7.4-10.4); Monocytes Absolute Auto 0.6 K/mm3 (0.1-0.6); Monocytes Percent Auto 8.7 % (2.6-8.5); Neutrophils Absolute Auto 4.8 K/mm3 (1.3-6.7); Neutrophils Percent Auto 66.3 % (45.5-73.1); Platelet Count Result 312 k/mm3 (150-375); Red Blood Count 5.38 M/mm3 (4.6-6.20); White Blood Count 7.2 K/mm3 (4.5-10.0)
[2024-09-16 09:32] LABS: Alanine Aminotransferase 29 U/L (6-50); Albumin Level 4.7 g/dL (3.5-5.1); Alkaline Phosphatase 78 U/L (38-126); Anion Gap 8 mmol/L (4-12); Aspartate Amino Transferase 39 U/L (17-59); Bilirubin,Total 0.5 mg/dL (0.2-1.3); Blood Urea Nitrogen 14 mg/dL (9-20); Carbon Dioxide 31 mmol/L (22-30); Chloride 102 mmol/L (98-107); Cholesterol 191 mg/dL (0-200); Creatine Kinase 261 U/L (55-170); Estimated Glomerular Filt Rate > 60; Glucose 98 mg/dL (65-110); HDL Direct 72 mg/dL; Magnesium 2.5 mg/dL (1.6-2.3); Phosphorus 3.2 mg/dL (2.5-4.5); Potassium 4.4 mmol/L (3.4-5.0); Sodium 141 mmol/L (137-145); Triglycerides 74 mg/dL (<150)
[2024-09-16 09:35] LABS: Rheumatoid Factor < 12.0 IU/ML (<12)
[2024-09-16 09:42] LABS: LDL Cholesterol Direct 81 mg/dL
[2024-09-16 10:10] LABS: Prostate Specific Antigen 0.9 ng/mL (< OR = 4.0)
[2024-09-16 10:13] LABS: Cortisol Random 8.81 ug/dL; Erythrocyte Sedimentation Rate 5 mm/hr (0-20)
[2024-09-16 10:17] LABS: Hemoglobin A1C 5.1 % (<5.7)
[2024-09-17 08:03] LABS: ANA Cascade Screen NEGATIVE (NEGATIVE)
[2024-09-20 13:59] LABS: Testosterone Free 78.1 pg/mL (35.0-155.0); Testosterone Total 543 ng/dL (250-1100)
== END 2024-09-16 08:29 | disposition home or self-care (01) ==
PROVIDERS: PCP Nurse Practitioner Family; Visit Provider Nurse Practitioner Family
DX: R73.01 Impaired fasting glucose (principal); D51.9 Vitamin B12 deficiency anemia, unspecified; G47.33 Obstructive sleep apnea (adult) (pediatric); E78.2 Mixed hyperlipidemia; G72.9 Myopathy, unspecified; Z99.89 Dependence on other enabling machines and devices; Z12.5 Encounter for screening for malignant neoplasm of prostate; R74.8 Abnormal levels of other serum enzymes
CPT/HCPCS: 36415; 80053; 80061; 82533; 82550; 82607; 83036; 83735; 84100; 84153; 84402; 84403; 84443; 85025; 85652; 86038; 86225; 86235; 86364; 86430; G0103

== ENCOUNTER 2024-09-30 06:57 | Outpatient (CLI) | payer OTHER, SELFPAY ==
--- NOTE | ~2024-09-30 | MR_ITS ---
MRI of the cervical spine Clinical History: Other signs of symptoms of nervous system Technique: Axial T2-weighted and gradient images, and sagittal T1-weighted, T2-weighted, and STIR emma ges were acquired. Findings: No fracture or subluxation seen. There is minimal reversal of the normal cervical lordosis. No suspicious bone marrow signal abnormality seen. At C2-C3, C3-C4, and C4-C5, there is no significant disc bulge or herniation. No spinal canal stenosi s or neural foraminal narrowing at these levels. At C5-C6, there is a large disc extrusion at the central to left paracentral region resulting in ivon re spinal canal stenosis and cord compression. There is mild cord edema at this level. Neural foramin a cells are preserved. At C6-C7, there is disc osteophyte complex most pronounced in the left paracentral to left foraminal region. There is mild canal stenosis without gibson cord compression. There is severe left neural fora yolanda narrowing. Right neural foramen may be minimally narrowed. Paravertebral soft tissues are otherwise unremarkable. Impression: Large disc extrusion/herniation at C5-C6, as detailed above, resulting in severe spinal canal stenosi s and cord compression with associated cord edema at this level. Neurosurgical/spinal surgical consul tation advised. Moderate degenerative spondylosis at C6-C7 level, as above. Findings reported to nurse practitioner Kim Ziegler at the time of this reading. Reviewed, dictated and finalized at [facility]. Impression: Large disc extrusion/herniation at C5-C6, as detailed above, resulting in sever e spinal canal stenosis and cord compression with associated cord edema at this level. Neurosurgical/spinal surgical consultation advised. Moderate degenerative spondylosis at C6-C7 level, as above. Findings reported to nurse practitioner Kim Ziegler at the time of this readi ng.
--- NOTE | ~2024-09-30 | MR_ITS ---
MRI of the lumbar spine Clinical History: Other signs and symptoms of nervous system Technique: Axial T2-weighted images, and sagittal T1-weighted, T2-weighted, and T2 fat-sat images wer e acquired. Findings: There is no fracture or sublocation of the lumbar spine. Vertebral bodies maintain normal h eight and alignment. No bone marrow signal abnormality seen. At T11-T12, there is a right paracentral disc protrusion which mildly compresses the ventral spinal c ord. There is associated moderate facet arthropathy at this level with mild effacement of the thecal sac. At T12-L1, there is no disc bulge or herniation. There is moderate facet arthropathy. No central lowell l stenosis or neural foraminal narrowing. At L1-L2, there is moderate degenerative disc narrowing. There is diffuse disc bulge and moderate fac et arthropathy, with mild central canal stenosis/thecal sac compression. There is mild right neural f oraminal narrowing. Left neural foramen relatively preserved. At L2-L3, there is moderate degenerative disc 9. There is diffuse disc bulge and mild to moderate fac et arthropathy. There is moderate central canal stenosis/thecal sac compression. There is moderate to advanced bilateral neural foraminal narrowing, right worse than left. At L3-L4, there is moderate degenerative tearing. Diffuse disc bulge and moderate facet arthropathy r esult in severe spinal canal stenosis/thecal sac compression. There is severe bilateral neural forami nal narrowing. At L4-L5, there is diffuse disc bulge with severe facet arthropathy. There is severe spinal canal jono nosis/thecal sac compression and severe left neural foraminal narrowing. There is moderate to severe right neural foraminal narrowing. At L5-S1, there is no disc bulge or herniation. No spinal canal stenosis or neural foraminal narrowin g. Paravertebral soft tissues are unremarkable. Impression: Multilevel severe degenerative spondylosis of the lumbar spine, from L1 through L5, with multilevel s natalie canal stenosis and neural foraminal narrowing. Please see details above. Right paracentral disc protrusion at T11-T12 which mildly compresses the ventral spinal cord. Reviewed, dictated and finalized at location M. Impression: Multilevel severe degenerative spondylosis of the lumbar spine, from L1 through L5, with multilevel spinal canal stenosis and neural foraminal narrowing. Plea se see details above. Right paracentral disc protrusion at T11-T12 which mildly compresses the ventra l spinal cord.
== END 2024-09-30 06:58 | disposition home or self-care (01) ==
LOC: MICIMG 06:58
PROVIDERS: PCP Nurse Practitioner Family; Visit Provider Nurse Practitioner Family
DX: R29.818 Other symptoms and signs involving the nervous system (principal); M47.896 Other spondylosis, lumbar region; M51.26 Other intervertebral disc displacement, lumbar region; M50.223 Other cervical disc displacement at C6-C7 level; M47.892 Other spondylosis, cervical region
CPT/HCPCS: 72141; 72148

== ENCOUNTER 2024-10-07 09:52 | Outpatient (CLI) | payer OTHER, SELFPAY ==
--- NOTE | ~2024-10-07 | XR_ITS ---
XR chest 2V 10/07/2024 10:30 Indication: Cervical disc disorder with myelopathy Procedure: 2 view chest Comparison: 04/21/2021 Findings: Heart size normal. No focal air space disease, pulmonary edema, pleural effusion or suspect ed pneumothorax. Impression: 1: No acute cardiopulmonary disease. Reviewed, dictated and finalized at location A. Impression: 1: No acute cardiopulmonary disease.
--- NOTE | 2024-10-07 10:01 | ECG_ITS ---
Test Date: 2024-10-07 10:21:55 Measurements Intervals [place] Rate: 72 P: 52 DE: 152 QRS: 44 QRSD: 81 T: 40 QT: 362 QTc: 397 Interpretive Statements SINUS RHYTHM No previous ECG available for comparison Electronically Signed On 10-07-2024 15:08:15 CDT by Shira Gore M.D.
--- OUTSIDE RECORDS SUMMARY | 2024-10-07 10:06 | XMS_ITS | Clinical Summary ---
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
--- OUTSIDE RECORDS SUMMARY | 2024-10-07 10:06 | XMS_ITS | Clinical Summary ---
Author Organization [facility] Address [address], [address] [address] Phone Care Team Providers Care Claim Trainee Name Role Phone Aki Person MD Primary Care Provider [phone] Social History Tobacco Use Types Packs/Day Years [...] Recently Relevant to Health Maintenance Care Teams Claim Trainee Relationship Specialty Start Date End Date Aki Person MD [address] [place] [address] PCP - General Sheet Metal Journeyman 01/02/17
--- OUTSIDE RECORDS SUMMARY | 2024-10-07 10:06 | XMS_ITS | Referral Summary ---
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
--- OUTSIDE RECORDS SUMMARY | 2024-10-07 10:06 | XMS_ITS | Continuity of Care Document ---
Author Organization [facility] Address [address] [place] [address] Phone Care Team Providers Care Book Sorter Name Role Phone Griffin OD, Morris Unavailable Unavailable Procedures Procedure Date No Charge Glasses Check No Charge Glasses Check Eye Exam & Treatment Refraction No Charge Glasses Check Advance Directives Directive Yes / No Effective Date File Name No Information Encounters Encounter Description Practice Location Reason(s) For Visit Diagnoses Date Provider Providers Copied on Encounter [facility], [address] [place] [address] [address], [place], [place], [id number], tel:[phone] SEC [facility] No Information 7-201 0 Griffin OD Morris. [address] , [address], [place], [place], [facility], . tel:[phone] [facility], [address] [place] [address] [address], [place], [place], [id number], [place] tel:[phone] SEC [facility] No Information 8-200 9 Griffin OD Morris. [address] , [address], [place], [place], [facility], . tel:[phone] [facility], [address] [place] [address] [address], [place], [place], [id number], tel:[phone] SEC [facility] No Information 5-200 8 Griffin OD Morris. [address] , [address], [place], [address], [place]. tel:[phone] [facility], [address], [place], [place], [id number], [place] tel:[phone] SEC [facility] No Information Mar-2 3-200 7 Griffin OD Morris. [address] [facility] , [address], [place], [address], [place]. tel:[phone] Family History Family Member Type Diagnosis Age At Onset No Information Payers Payer name Insurance type Covered constitution party ID Authoriza tion(s) No Information Social History [...]
[2024-10-07 10:51] LABS: Add Urine Microscopic? NO; Appearance Urine Clear (Clear); Bilirubin Urine Negative (Negative); Blood Urine Negative (Negative); Color Urine Yellow (Yellow); Glucose Urine UA 3+ mg/dL (Negative); Ketones Urine Negative (Negative); Leukocyte Esterase Ur Negative LEU/UL (Negative); Nitrate Urine Negative (Negative); Protein Urine Negative (Negative); Specific Grav Ur 1.008 (1.001-1.035); Urobilinogen Urine 0.2 mg/dL (<2.0); pH Urine 7.5 (5.0-9.0)
[2024-10-07 11:04] LABS: INR 0.9; Partial Thromboplastin Time 30.7 Seconds (22.3-36.8)
== END 2024-10-07 09:53 | disposition home or self-care (01) ==
LOC: ANHSURGERY 09:54
PROVIDERS: PCP Nurse Practitioner Family; Visit Provider Neurological Surgery
DX: Z01.818 Encounter for other preprocedural examination (principal); E78.2 Mixed hyperlipidemia; M50.00 Cervical disc disorder with myelopathy, unspecified cervical region
CPT/HCPCS: 36415; 71046; 81003; 85610; 85730; 86850; 86900; 86901; 93005

== ENCOUNTER 2024-10-12 00:34 | Day surgery (SDC) | payer OTHER, SELFPAY ==
[2024-10-07 08:31] VITALS: BMI 30.3
--- NOTE | 2024-10-07 08:39 | PC.NURSE ---
Report to the Outpatient Waiting Room, entrance under the green pavilion located off [facility], at time _1000_ on date _[id number]_. Planned Procedure Time: _1200_.? Time changes happen often and if your time is changed the preop area will call you the afternoon before. - You and your visitor will be asked to self-screen and do not enter if you have any COVID symptoms. Please call surgeon if you need to reschedule. - A mask is optional within the hospital at this time. Patients may have clear liquids (water, carbonated beverages, clear teas, apple juice) until 3 hours prior to surgery with a maximum of 20 ounces. - No food from midnight until time of surgery and no smoking, or chewing tobacco (or any form of nicotine). No chewing gum, candy or mints. Take only the following medications with a SIP of water on the morning of surgery: __None___ DO NOT STOP ANY OF YOUR OTHER PRESCRIPTION MEDICATIONS PRIOR TO SURGERY EXCEPT THE FOLLOWING Hold all vitamins and supplements for 3 days per anesthesiologist. Medications to discontinue per physician __Patient holding Meloxicam as of [id number]____ Date to take last dose Please no make-up, nail wallisian, hairspray, perfume, deodorant, or body powder the day of surgery.? No jewelry (including any body piercings) or valuables the day of surgery, leave them at home.? Please take a shower or bath the night before, or the morning of, surgery with an antibacterial soap.? Wear comfortable, loose fitting clothing. - Jewelry must be removed prior to entering the operating room.? Rings and piercings that are not removed may be cut off. - The hospital will not accept responsibility for valuables.? - Please leave all valuables, including medications, at home the day of surgery. If you are going home after surgery, a licensed six horse hitch driver must drive you home.? - NO public transportation without another adult if you receive anesthesia. - We recommend that an adult stay with you for 24 hours following discharge. - We also recommend that you do not drive, make important decision, drink alcoholic beverages, or take any drugs that were not prescribed by your health care provider for at least 24 hours after your discharge time. Follow any additional instructions given to you from your surgeon. Telephone instructions given to __Dalton___and asked if any additional questions and then verbalized understanding. Patient advised to call surgeon office or pre surgery nurse liaison [phone] if any additional questions.
[2024-10-12] VITALS (11 sets, daily range): BP systolic 118–155; BP diastolic 70–88; PULSE 81–103; RESP 10–16; TEMP 36.3–36.5; O2SAT 98–100; BMI 29.7
--- NOTE | ~2024-10-12 | XR_ITS ---
XR fluoroscopy no charge Indication: Cervical fusion/discectomy TECHNIQUE: Fluoroscopy used during Cervical fusion/discectomy performed by [Alda Godinez MD ] on 10/12/2024. Fluoroscopy time is 7 seconds. with 2 fluoroscopic images captured. FINDINGS: Correlate with procedure note. IMPRESSION: Fluoroscopy used during Cervical fusion/discectomy at C5-6. Reviewed, dictated and finalized at location A.
--- OUTSIDE RECORDS SUMMARY | 2024-10-12 00:37 | XMS_ITS | Continuity of Care Document ---
Author Organization [facility] Address [address] [place] [address] Phone Care Team Providers Care Administrative Assistant Coordinator Name Role Phone Griffin OD, Morris Unavailable Unavailable Procedures Procedure Date No Charge Glasses Check No Charge Glasses Check Eye Exam & Treatment Refraction No Charge Glasses Check Advance Directives Directive Yes / No Effective Date File Name No Information Encounters Encounter Description Practice Location Reason(s) For Visit Diagnoses Date Provider Providers Copied on Encounter [facility], [address] [place] [address] [address], [place], [place], [id number], tel:[phone] [facility] No Information 7-201 0 Griffin OD Morris. [address] , [address], [place], [place], [facility], . tel:[phone] [facility], [address] [place] [address] [address], [place], [place], [id number], [place] tel:[phone] [facility] No Information 8-200 9 Griffin OD Morris. [address] , [address], [place], [place], [facility], . tel:[phone] [facility], [address] [place] [address] [address], [place], [place], [id number], tel:[phone] [facility] No Information 5-200 8 Griffin OD Morris. [address] , [address], [place], [address], [place]. tel:[phone] [facility], [address], [place], [place], [id number], [place] tel:[phone] SEC [facility] No Information Mar-2 3-200 7 Griffin OD Morris. [address] [facility] , [address], [place], [address], [place]. tel:[phone] Family History Family Member Type Diagnosis Age At Onset No Information Payers Payer name Insurance type Covered democrat ID Authoriza tion(s) No Information Social History [...]
--- OUTSIDE RECORDS SUMMARY | 2024-10-12 00:37 | XMS_ITS | Clinical Summary ---
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
--- OUTSIDE RECORDS SUMMARY | 2024-10-12 00:37 | XMS_ITS | Clinical Summary ---
Author Organization [facility] Address [address], [address] [address] Phone Care Team Providers Care Tech Ed/Woodshop Teacher Name Role Phone Aki Person MD Primary Care Provider Social History Tobacco Use Types Packs/Day Years [...] Recently Relevant to Health Maintenance Care Teams Tech Ed/Woodshop Teacher Relationship Specialty Start Date End Date Aki Person MD [address] [place] [id number] PCP - General Instrument Assembler 01/02/17
--- OUTSIDE RECORDS SUMMARY | 2024-10-12 00:37 | XMS_ITS | Referral Summary ---
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
[2024-10-12] MEDS: LACTATED RINGERS 1,000 ML 30 ML IV CONT ×2 (10:55→14:17)
--- NOTE | 2024-10-12 11:07 | WPDHPUPDATE1 ---
History and Physical Update Update Date/Time: 10/12/24 11:07 History and Physical has been reviewed, including an updated exam of the patient. There are NO changes in the patient's condition. Risks, benefits, and alternatives have been discussed and questions answered. Patient agrees to proceed with procedure.
--- NOTE | 2024-10-12 11:42 | P.PNAN_ITS ---
Anes - Initial Pre Proc Eval Procedure: Operation Date: 10/12/24 12:00 Proposed Procedures p C5-6 Anterior Cervical Discectomy and Fusion - Alda Godinez MD Date/Time: 10/12/24 11:42 Surgeon: Alda Godinez MD Pre Op Diagnosis: cervical disc herniation with myelopathy Patient Data Age: 63 Gender: M Height: 1.65 m Weight: 80.9 kg Allergies Allergy/AdvReac Type Severity Reaction Status Date / Time No Known Allergies Allergy Verified 10/12/24 10:52 Home Medications ?Medication ?Instructions ?Recorded ?Confirmed ?Type famotidine-Ca carb-mag hydrox 10 1 tablet PO PRN PRN Acid Reflux 03/27/23 10/07/24 History mg-800 mg-165 mg chewable tablet (Pepcid Complete) arginine HCl (L-arginine) 1,000 mg 1,000 mg PO . q.a.m. 08/20/23 10/07/24 History tablet calcium polycarbophil 625 mg 1,250 mg PO BID 08/20/23 10/07/24 History tablet (FiberCon) magnesium oxide 500 mg PO . q.h.s. 08/20/23 10/07/24 History meloxicam 15 mg tablet 15 mg PO DAILY PRN pain #90 tabs 01/26/24 10/07/24 Rx Patient hx anesthesia problems: none Family hx anesthesia problems: none Results Review: All pre-operative results and documents have been reviewed as part of the pre- operative evaluation. [facility] Past Medical History Medical History Spinal stenosis of cervical region with radiculopathy Neurogenic claudication Myopathy Hypogonadism male Total testosterone 394 with free testosterone 63.4 on 11/26/2018. Susanna tosterone 468 with free testosterone 77.2 on 05/09/2022. total testosterone 518 with free testosterone 80.5 On 08/21/2023. Muscle weakness of all 4 extremities Herpes zoster (~08/11/94) left L4 dermatome Lumbar spondylosis with myelopathy (~10/10/16) MRI of the lumbar spine on 10/10/2016 with multilevel disc pathology at L2- L3, L3-L4, L4-L5 with stenosis and neuroforaminal narrowing on the left at L3-L4 and L4-L5. Lumbar epidural 10/15/2016 at L2-L3, L3-L4, L4-L5. Lumbar decompression surgery on 10/24/2016 at L3-L4 and L4-L5. Cervical spondylosis (~04/13/15) MRI of the C-spine on 04/13/2015 with herniated disc on the left at C6-C7 moderate and mild herniation at C5-C6. MRI on 08/29/2016 with herniated disc on the left at C6-C7 and C5-C6. EMG and nerve conduction study revealed left cervical radiculopathy cervical epidural C6-C7 on the left on 09/05/2016. Ulnar neuropathy of both upper extremities (~05/2024) the 08/30/2024 with bilateral ulnar neuropathy worse on the left than the right with mild bilateral carpal tunnel syndrome. Carpal tunnel syndrome on both sides (~2023) EMG and nerve conduction study 08/30/2024 with bilateral carpal tunnel syndrome Calculus of distal left ureter (~05/10/13) stone extraction 05/24/2013. Rupture of distal biceps tendon (~05/2016) surgical repair right distal biceps tendon 06/08/2016 Abnormal fasting glucose Fasting glucose 104 on 02/11/2020. Fasting glucose 107 with hemoglobin A1c 5.5 05/09/2022. Colon cancer screening Renal stone passed asymptomatic 2 x 3 mm stone 11/03/2022. Left foot pain (~06/2023) X-ray of the left foot 07/23/2023 with mild arthritis. Plantar wart of left foot (~06/2023) over 5th metatarsal head Influenza A (05/14/23) tested positive 05/18/2023. Paresthesia of both hands (~2023) COVID-19 (12/09/23) 4th episode. Tested positive 12/10/2023. Influenza-like illness Influenza-like symptoms COVID-19 (02/04/23) 3rd episode with mild symptoms starting 02/04/2023 with negative COVID test. Tested positive 02/05/2023. Severe fatigue, weakness, arthralgias, Myalgias,slight cough. Elevated CPK Elevated ferritin level secondary to COVID infection, resolved COVID-19 (11/06/21) mild symptoms starting the evening 11/06/2021 with negative test and positive test on 11/07/2021. Pain of right heel (04/22/21) Elevated LFTs Pneumonia due to COVID-19 virus Rhabdomyolysis secondary to COVID-19 COVID-19 (~04/06/21) rapid test positive for 04/08/2021 0730 Polyp of colon (08/12/99) normal colonoscopy 02/18/1995, 2 polyps on 08/12/1999, polyp on 08/15/2005, 3 polyps on 02/22/2010, 2 polyps on 04/30/2017. normal colonoscopy 04/10/[address] Ruiz. repeat in 5 years. Family history of colon cancer in father Shortness of breath on exertion Acute pain of right foot Pes anserinus bursitis of left knee Osteoarthritis of left knee Otitis externa in other diseases classified elsewhere, right ear (10/13/20) Infected tick bite of neck (09/02/20) Acute non-recurrent maxillary sinusitis Encounter for screening for other viral diseases Exposure to COVID-19 virus Mixed hyperlipidemia Myositis ossificans (~10/10/16) right elbow after biceps tendon repair Pain in right forearm Encounter for wellness examination in adult Vitamin B12 deficiency anemia Encounter for prostate cancer screening Thoracic radiculitis KHURRAM on CPAP (~04/20/08) split sleep study 04/20/2008 with CPAP at 9 cm of water pressure. Surgical History Surgical History Hx of decompressive lumbar laminectomy (10/24/16) L3-L4, L4-L5 left History of vasectomy (01/12/92) History of nasal septoplasty (06/16/89) Hx of appendectomy (06/03/88) History of tonsillectomy and adenoidectomy (~12/19/1967) Family History Family History Father Acute myocardial infarction Colon cancer Mother Hypertension Social History Social History Smoking status: Never smoker Alcohol intake: never Substance use: never Substance use type: does not use Living arrangements: with family Gender identity (if verbalized by the patient): Male Spiritual care concerns: No Anes - Eval Final PreProcedure Day of Procedure 10/12/24 11:42 Patient weight: normal Heart: regular rate and rhythm Lungs: clear to auscultation Airway: Mallampati scale class II Neurological: alert and oriented Last oral intake: >/= 8 hours ASA classification: III Emergent: no Anesthetic plan: proceed Anesthesia type and monitoring: general ETT (glidescope secondary to radicular symptoms) and standard monitoring Results Review: All pre-operative results and documents have been reviewed as part of the pre- operative evaluation. Informed Consent: The patient's anesthetic plan and its attendant risks and benefits were discussed with the patient/family/POA. Questions were solicited and answers provided to the satisfaction of the patient/family/POA.
[2024-10-12] MEDS: ceFAZolin 2 GM/D5W 50 ML 2 GM/50 ML BAG IVPB ×2 (11:50→20:06)
[2024-10-12] MEDS: BUPIVACAINE/EPINEPHRINE 0.5% 50 ML VIAL 30 ML INFILTRATE (12:40)
--- NOTE | 2024-10-12 14:11 | PM.OP ---
Procedure Note - Brief Procedure Note - Brief Date of procedure: 10/12/24 cervical disc herniation with myelopathy Post-op diagnosis: Same Procedure performed: Anterior cervical diskectomy and fusion C5-6 Use of microscope Use of C-arm Surgeon: Alda Godinez MD Revenue Investigator: Lorene Anesthesia: GETA Findings: Large amount of disc material in ventral epidural space. Spinal cord was well decompressed by end of diskectomy. No changes in neuromonitoring throughout case Estimated blood loss (mL): 25 Drains: No Packing: No Pathology: None sent Complications: None Condition: Stable Disposition: PACU
--- NOTE | 2024-10-12 14:17 | W.PM.PROC2 ---
Procedure Note - Detailed Date of Procedure 10/12/24 Pre-op Diagnosis cervical disc herniation with myelopathy Post-op Diagnosis Same Procedure Performed 1. Anterior cervical diskectomy C5-6 2. Anterior cervical arthrodesis C5-6 with Magnetos 3. Anterior cervical interbody placement at C5-6 4. Use of microscope for microsurgical dissection 5. Use of C-arm for fluoroscopy Surgeon Alda Godinez MD Anesthesia General Description of Procedure The patient was taken to the operating room and was transferred to the operating table in the supine position. General anesthesia was induced with fiberoptic intubation. Neuromonitoring leads were applied. Pressure points were appropriately padded, and compression devices were placed on the patient's calves. A shoulder roll was placed. The appropriate level was confirmed with the C-arm XR imaging. The patient was prepped and draped in usual sterile fashion. Perioperative antibiotics were given. Time out was performed. Local anesthesia was injected into the planned incision site. A horizontal incision was made with a 10-blade scalpel on the right side of the neck. The subcutaneous tissue was undermined above the platysma with the Metzenbaum scissors. The platysma was sharply opened horizontally. Bleeding was controlled with the bipolar. The avascular plane to the spine was dissected sharply. The anterior border of the spine was located and exposed with sharp and blunt dissection. A spinal needle was used to localize the C5-6 disc space; this was confirmed on fluoroscopy. The longus coli muscles were elevated bilaterally with a bovie. Once the C5-6 disc and vertebral bodies and adjacent intervertebral discs were adequately exposed, self-retaining retractors were placed. Lawton pins were placed in C5 and C6. The disc was removed with a combination of currettes and kerrisons. A large amount of disc material was noted off to the left side below the posterior edge of the vertebral body and the posterior longitudinal ligament which had been pushed dorsally. The PLL was identified and opened with kerrison rongeurs. The spinal cord and neuroforamen were well decompressed. Interbody trial instruments were used to determine the appropriate size for the prosthetic vertebral interbody cage. Hemostasis was achieved in the disc space. The Lawton pins were removed, and bone wax was used for hemostasis. A 7mm interbody was filled with Magnetos and placed at C5-6. The interbody was connected to a plate. Jewelry Bench Molder holes were drilled inferiorly through the plate into C6 followed by a 14mm screw. This was repeated through the superior holes of the plate into C5. Neuromonitoring was stable throughout the surgery. Xrays were obtained to confirm accurate hardware placement. The surgical cavity was copiously irrigated; appropriate hemostasis was verified; and there was no evidence of dural tear/CSF leak. The platysma was closed with interrupted 3-0 Vicryl, followed by interrupted 3-0 Vicryl for the dermis, and 4-0 running subcuticular monocryl for the skin. Dermabond was placed. The patient was extubated, transferred to the bed, and taken to the PACU without incident. Billing codes 07152, 31443, 63890, 05755 Estimated Blood Loss 25 Drains No Packing No Pathology None sent Complications None Condition Stable Disposition PACU [facility] Billing Surgery - Charge Forward: Surgery Billing
--- NOTE | 2024-10-12 16:39 | ADMGEN ---
This patient, Dalton Medina, was admitted to [facility] Surg Room 313-01. Patient/family oriented to hospital policies and general routines including ID bracelet, bed and alarms, visiting hours, pain management, procedures, bathroom and other care routines, personal items, smoking policy, room service/diet, and visiting hours. Information on how to activate the Rapid Response Team has been discussed. Patient/Family are encouraged to report perceived risks to care and to ask questions if they do not understand what they are told or what they should do.
[2024-10-12] MEDS: ACETAMINOPHEN 500 MG TABLET 1000 MG PO (20:11)
[2024-10-13 00:55] VITALS: BP 123/72; PULSE 89; RESP 20; TEMP 36.7; O2SAT 96
[2024-10-13] MEDS: ceFAZolin 2 GM/D5W 50 ML 2 GM/50 ML BAG IVPB ×2 (04:07→11:24)
[2024-10-13 05:13] VITALS: BP 110/72; PULSE 87; RESP 20; TEMP 36.9; O2SAT 97
[2024-10-13 08:23] VITALS: BP 124/73; PULSE 81; RESP 16; TEMP 36.1; O2SAT 100
[2024-10-13] MEDS: DOCUSATE SODIUM 100 MG CAPSULE PO (09:55)
--- NOTE | 2024-10-13 10:15 | WPDANESPN ---
Anes - Prog Note Post-Op Date/Time: 10/13/24 10:15 Cardiovascular status: normal Respiratory status: normal Airway patency: baseline Mental status: baseline Post-Op hydration status: normal Vital Signs: Last Vital Signs Temp 97.0 F L 10/13/24 08:23 Pulse 81 10/13/24 08:23 Resp 16 10/13/24 08:23 BP 124/73 10/13/24 08:23 Pulse Ox 100 10/13/24 08:23 O2 Del Method Room Air 10/13/24 08:00 O2 Flow Rate 10 10/12/24 14:45 Pain Score (VAS): 0/10 I/O: Intake & Output 10/12/24 10/13/24 10/13/24 23:59 07:59 15:59 Intake Total 290 50 240 Balance 290 50 240 Post-procedural complaints: none Patient Feedback: Patient satisfied with anesthetic care. 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
--- NOTE | 2024-10-13 13:16 | WPDNEUROSGPN ---
Progress Note: A&P Assessment and Plan (1) Status post cervical arthrodesis: Code(s): Z98.1 - Arthrodesis status Status: Acute Plan -Discharge home today -Activity and wound care precautions discussed -Follow up with me in clinic in 2-3 weeks as scheduled Subjective Date/time seen: 10/13/24 13:16 Interval history: He is doing very well with essentially no pain at this time. He indicates that the strength his extremities is improving. The numbness is slightly improved as well. He is swallowing without significant difficulty. He walked the halls today without difficulty. He would like to go home. Review of Systems Review of Systems: All systems reviewed & are unremarkable except as noted in HPI and below Exam Narrative: AOx4 Good strength in all extremities Sensation intact to light touch Incision c/d/i Objective Data Vital Signs Vital Signs: Vital Signs - 24 hr 10/12/24 14:17 10/12/24 14:25 10/12/24 14:30 Temperature 97.3 F L Pulse Rate 83 102 H 87 Respiratory Rate 14 10 L 12 Blood Pressure 124/75 118/78 128/86 Pulse Oximetry 98 99 99 Oxygen Delivery Simple Face Mask Simple Face Mask Simple Face Mask Oxygen Flow Rate 10 10 10 10/12/24 14:45 10/12/24 15:00 10/12/24 16:20 Temperature 97.3 F L Pulse Rate 81 85 81 Respiratory Rate 15 13 16 Blood Pressure 126/85 129/86 135/77 Pulse Oximetry 100 100 100 Oxygen Delivery Simple Face Mask Room Air Oxygen Flow Rate 10 10/12/24 16:35 10/12/24 16:45 10/12/24 17:05 Temperature 97.4 F L 97.4 F L Pulse Rate 81 95 Respiratory Rate 16 16 Blood Pressure 137/83 146/88 H Pulse Oximetry 99 100 100 Oxygen Delivery Room Air Oxygen Flow Rate 10/12/24 18:05 10/12/24 20:00 10/12/24 21:13 Temperature 97.7 F 97.6 F Pulse Rate 100 103 H Respiratory Rate 16 16 Blood Pressure 133/70 155/84 H Pulse Oximetry 100 99 Oxygen Delivery Room Air Oxygen Flow Rate 10/13/24 00:55 10/13/24 05:13 10/13/24 08:00 Temperature 98.1 F 98.5 F Pulse Rate 89 87 Respiratory Rate 20 20 Blood Pressure 123/72 110/72 Pulse Oximetry 96 97 Oxygen Delivery Room Air Oxygen Flow Rate 10/13/24 08:23 10/13/24 10:06 Temperature 97.0 F L Pulse Rate 81 Respiratory Rate 16 Blood Pressure 124/73 Pulse Oximetry 100 Oxygen Delivery Room Air Oxygen Flow Rate Intake/Output Intake/Output: Intake & Output 10/10/24 10/11/24 10/12/24 10/13/24 23:59 23:59 23:59 23:59 Intake Total 740 340 Balance 740 340 Meds/Results Medications: Active Medications Generic Name Dose Route Start Last Admin Trade Name Freq PRN Reason Stop Dose Admin Acetaminophen 1,000 mg 10/12/24 14:13 10/12/24 20:11 Acetaminophen 500 Mg Tablet PO 1,000 mg Q6H PRN Administration Mild Pain (1-3) Al Hydrox/Mg Hydrox/Simethicone 20 ml 10/12/24 14:12 Mag Hydrox/Al Hydrox/Simeth 30 Ml Udc PO Q4H PRN Indigestion/Heartburn Bisacodyl 10 mg 10/12/24 14:12 Bisacodyl 10 Mg Suppository RECTAL DAILY PRN Constipation Cyclobenzaprine HCl 10 mg 10/12/24 14:13 Cyclobenzaprine Hcl 10 Mg Tablet PO TID PRN Muscle Spasms Docusate Sodium 100 mg 10/12/24 21:00 10/13/24 09:55 Docusate Sodium 100 Mg Capsule PO 100 mg Q12HR TAMMY Administration Cefazolin Sodium 2 gm in 50 mls @ 100 mls/hr 10/12/24 20:00 10/13/24 11:54 Ancef 2 Gm/D5w 50 Ml IVPB Infused Q8H TAMMY Infusion Magnesium Oxide 400 mg 10/13/24 21:00 Magnesium Oxide 400 Mg Tablet PO HS TAMMY Morphine Sulfate 2 mg 10/12/24 14:13 Morphine Sulfate (*Crx) 2 Mg/Ml Inj IV PUSH Q2H PRN Breakthrough Pain Ondansetron HCl 4 mg 10/12/24 14:12 Ondansetron Inj 4 Mg/2 Ml Vial IV PUSH Q8H PRN Nausea And Vomiting Oxycodone HCl 5 mg 10/12/24 14:13 Oxycodone Hcl (*Crx) 5 Mg Tab Ir PO Q4H PRN Pain Rated 4-6 Oxycodone HCl 10 mg 10/12/24 14:13 Oxycodone Hcl (*Crx) 5 Mg Tab Ir PO Q4H PRN Pain Rated 7-10 Senna/Docusate Sodium 1 tab 10/12/24 14:12 Senna/Docusate Sodium Tablet PO HS PRN Constipation Radiology Results: ITS Impressions Fluoroscopy 10/12/24 14:33 IMPRESSION: Fluoroscopy used during Cervical fusion/discectomy at C5-6.
== END 2024-10-13 13:35 | disposition home or self-care (01) ==
LOC: ANHSURGERY 14:24 → ANH3MEDSUR 16:02
PROVIDERS: PCP Nurse Practitioner Family; Visit Provider Neurological Surgery
PROC: (CPT 63030; principal; 2024-10-12 12:00)
DX: M50.022 Cervical disc disorder at C5-C6 level with myelopathy (principal)
CPT/HCPCS: 22551; 22853; 97161; 99199; A9270; C1713; J0330; J0690; J1100; J2003; J2250; J2405; J2704; J3010; J7120

== ENCOUNTER 2024-10-13 21:57 | Emergency (ER) | payer OTHER, SELFPAY ==
--- NOTE | ~2024-10-13 | CT_ITS ---
CT soft tissue neck wo con Ordering provider: Albert Morse MD History: 63 years Male with . s/p ACDF, pill stuck in throat . Comparison: None. Technique: CT soft tissues neck was performed without contrast. . Automated exposure control and ite rative reconstruction technique were employed. The dose-length product was 549.09 mGy-cm. Findings: LOWER HEAD: The visualized brain parenchyma, optic globes/orbits and mastoids are normal. Left ethm oid and right maxillary sinusitis. SALIVARY GLANDS: Normal. THYROID: Normal. SUPRAHYOID DEEP SPACES: Air is seen in the neck in multiple areas including posterior to the right th yroid, right sternomastoid muscle and in the right prevascular space most likely postsurgical. CAROTID ARTERIES: Normal. JUGULAR VEINS: Normal. TONSILS: Normal. ORAL CAVITY: Partially obscured by dental amalgam but normal as visualized. PHARYNX, LARYNX AND TRACHEA: Patent and normal. No prevertebral soft tissue swelling. The area of the true vocal cord shows minimal air passage which may be due to phonation stage but andrew ma in the area cannot be excluded. Clinical evaluation advised.. SUPERFICIAL SOFT TISSUES: Normal. No lymphadenopathy or neck mass. THORACIC INLET/VISUALIZED UPPER CHEST: Normal. SKELETAL: Postoperative changes at the level of C5-C6 with disc spacer. IMPRESSION: 1. Air is seen in the soft tissues of the neck most likely postsurgical. 2. The vocal cords are unremarkable which may be due to edema. Clinical correlation advised. Reviewed, dictated and finalized at location A. IMPRESSION: 1. Air is seen in the soft tissues of the neck most likely postsurgical. 2. The vocal cords are unremarkable which may be due to edema. Clinical correl ation advised.
--- OUTSIDE RECORDS SUMMARY | 2024-10-13 21:59 | XMS_ITS | Clinical Summary ---
Author Organization [facility] Address [address], [address] [address] Phone Care Team Providers Care Christmas Tree Farm Worker Name Role Phone Aki Person MD Primary Care Provider [phone] Social History Tobacco Use Types Packs/Day Years [...] Recently Relevant to Health Maintenance Care Teams Christmas Tree Farm Worker Relationship Specialty Start Date End Date Aki Person MD [address] [place] [id number] PCP - General Film Tests Checker 01/02/17
--- OUTSIDE RECORDS SUMMARY | 2024-10-13 21:59 | XMS_ITS | Continuity of Care Document ---
Author Organization [facility] Address [address] [place] [address] Phone Care Team Providers Care Brickmason Helper Name Role Phone Griffin OD, Morris Unavailable Unavailable Procedures Procedure Date No Charge Glasses Check No Charge Glasses Check Eye Exam & Treatment Refraction No Charge Glasses Check Advance Directives Directive Yes / No Effective Date File Name No Information Encounters Encounter Description Practice Location Reason(s) For Visit Diagnoses Date Provider Providers Copied on Encounter [facility], [address] [place] [address] [address], [place], [place], [id number], tel:[phone] [facility] No Information 7-201 0 Griffin OD Morris. [address], [place], [place], [facility], . tel:[phone] [facility], [address] [place] [address] [address], [place], [place], [id number], [place] tel:[phone] [facility] No Information 8-200 9 Griffin OD Morris. [address], [place], [place], [facility], . tel:[phone] [facility], [address] [place] [address] [address], [place], [place], [id number], tel:[phone] [facility] No Information 5-200 8 Griffin OD Morris. [address] , [address], [place], [address], [place]. tel:[phone] [facility], [address], [place], [place], [id number], [place] tel:[phone] [facility] No Information Mar-2 3-200 7 Griffin OD Morris. [address] , [address], [place], [address], [place]. tel:[phone] Family History Family Member Type Diagnosis Age [...]
[2024-10-13 22:03] VITALS: BP 138/76; PULSE 105; RESP 15; TEMP 36.6; O2SAT 97
--- OUTSIDE RECORDS SUMMARY | 2024-10-13 23:00 | XMS_ITS | Clinical Summary ---
Author Organization [facility] Address [address], [address] [address] Phone Care Team Providers Care Tank Systems Maintainer Name Role Phone Aki Person MD Primary Care Provider [phone] Social History Tobacco Use Types Packs/Day Years [...] Recently Relevant to Health Maintenance Care Teams Tank Systems Maintainer Relationship Specialty Start Date End Date Aki Person MD [address] [place] [id number] PCP - General Dural Mechanic 01/02/17
--- OUTSIDE RECORDS SUMMARY | 2024-10-13 23:00 | XMS_ITS | Continuity of Care Document ---
Author Organization [facility] Address [address] [place] [address] Phone Care Team Providers Care Meat Molder Name Role Phone Griffin OD, Morris Unavailable Unavailable Procedures Procedure Date No Charge Glasses Check No Charge Glasses Check Eye Exam & Treatment Refraction No Charge Glasses Check Advance Directives Directive Yes / No Effective Date File Name No Information Encounters Encounter Description Practice Location Reason(s) For Visit Diagnoses Date Provider Providers Copied on Encounter [facility], [address] [place] [address] [address], [place], [place], [id number], tel:[phone] [facility] No Information 7-201 0 Griffin OD Morris. [address], [place], [place], [facility], . tel:[phone] [facility], [address] [place] [address] [address], [place], [place], [id number], [place] tel:[phone] [facility] No Information 8-200 9 Griffin OD Morris. [address], [place], [place], [facility], . tel:[phone] [facility], [id number] [place] [address] [address], [place], [place], [id number], tel:[phone] [facility] No Information 5-200 8 Griffin OD Morris. [address] , [address], [place], [address], [place]. tel:[phone] [facility], [address], [place], [place], [address], [place] tel:[phone] [facility] No Information Mar-2 3-200 7 Griffin OD Morris. [address] , [address], [place], [address], [place]. tel:[phone] Family History Family Member Type Diagnosis Age [...]
--- OUTSIDE RECORDS SUMMARY | 2024-10-13 23:00 | XMS_ITS | Clinical Summary ---
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
--- OUTSIDE RECORDS SUMMARY | 2024-10-13 23:00 | XMS_ITS | Referral Summary ---
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
--- NOTE | 2024-10-13 23:09 | ED_ITS ---
HPI - General Adult General Chief complaint: Unspecified Stated complaint: pill stick in throat; anterior c spine fusion yest Time Seen by Provider: 10/13/24 22:49 History of Present Illness HPI narrative: 63-year-old male who is postop day 1 from a anterior cervical diskectomy of C5- C6 with neurosurgeon Dr. Godinez. Patient presents the emergency started today as he is feeling like he has a pill stuck in the back of his throat near the level of his surgery. Patient states that he was taking his magnesium oxide tablets 4 mg and feels like the pill got stuck sideways. He was having some coughing and choking sensation but was able to tolerate oral intake afterwards. He states he has coughed up and produced particulars of frothy white material and now has a very prominent burning sensation the back of his throat. He called his neurosurgeon who referred him to go to the hospital for potential endoscopy or laryngoscopy and was reportedly okay with any of those procedures even with the cervical procedure that he had completed. Patient has had no dysphonia, no nausea, vomiting, abdominal pain, chest pain, shortness a breath. Is tolerating his own secretions. Not any distress. He did call Dr. Velazquez from Gastroenterology prior to arrival and got some recommendations but was encouraged to come to the ER for evaluation by potential ENT. Related Data Home Medications ?Medication ?Instructions ?Recorded ?Confirmed ?Last Taken ?Type famotidine-Ca carb-mag hydrox 10 1 tablet PO PRN PRN Acid Reflux 03/27/23 10/07/24 Unknown History mg-800 mg-165 mg chewable tablet (Pepcid Complete) arginine HCl (L-arginine) 1,000 mg 1,000 mg PO . q.a.m. 08/20/23 10/07/24 10/06/24 History tablet calcium polycarbophil 625 mg 1,250 mg PO BID 08/20/23 10/07/24 Unknown History tablet (FiberCon) magnesium oxide 500 mg PO . q.h.s. 08/20/23 10/07/24 Unknown History Allergies Allergy/AdvReac Type Severity Reaction Status Date / Time No Known Allergies Allergy Verified 10/13/24 21:58 Review of Systems Review of Systems: As reviewed above in HPI [facility] Past Medical History Medical History Spinal stenosis of cervical region with radiculopathy Neurogenic claudication Myopathy Hypogonadism male Total testosterone 394 with free testosterone 63.4 on 11/26/2018. Testosterone 468 with free testosterone 77.2 on 05/09/2022. total testosterone 518 with free testosterone 80.5 On 08/21/2023. Muscle weakness of all 4 extremities Herpes zoster (~08/11/94) left L4 dermatome Lumbar spondylosis with myelopathy (~10/10/16) MRI of the lumbar spine on 10/10/2016 with multilevel disc pathology at L2- L3, L3-L4, L4-L5 with stenosis and neuroforaminal narrowing on the left at L3-L4 and L4-L5. Lumbar epidural 10/15/2016 at L2-L3, L3-L4, L4-L5. Lumbar decompression surgery on 10/24/2016 at L3-L4 and L4-L5. Cervical spondylosis (~04/13/15) MRI of the C-spine on 04/13/2015 with herniated disc on the left at C6-C7 moderate and mild herniation at C5-C6. MRI on 08/29/2016 with herniated disc on the left at C6-C7 and C5-C6. EMG and nerve conduction study revealed left cervical radiculopathy cervical epidural C6-C7 on the left on 09/05/2016. Ulnar neuropathy of both upper extremities (~05/2024) the 08/30/2024 with bilateral ulnar neuropathy worse on the left than the right with mild bilateral carpal tunnel syndrome. Carpal tunnel syndrome on both sides (~2023) EMG and nerve conduction study 08/30/2024 with bilateral carpal tunnel syndrome Calculus of distal left ureter (~05/10/13) stone extraction 05/24/2013. Rupture of distal biceps tendon (~05/2016) surgical repair right distal biceps tendon 06/08/2016 Abnormal fasting glucose Fasting glucose 104 on 02/11/2020. Fasting glucose 107 with hemoglobin A1c 5.5 05/09/2022. Colon cancer screening Renal stone passed asymptomatic 2 x 3 mm stone 11/03/2022. Left foot pain (~06/2023) X-ray of the left foot 07/23/2023 with mild arthritis. Plantar wart of left foot (~06/2023) over 5th metatarsal head Influenza A (05/14/23) tested positive 05/18/2023. Paresthesia of both hands (~2023) COVID-19 (12/09/23) 4th episode. Tested positive 12/10/2023. Influenza-like illness Influenza-like symptoms COVID-19 (02/04/23) 3rd episode with mild symptoms starting 02/04/2023 with negative COVID test. Tested positive 02/05/2023. Severe fatigue, weakness, arthralgias, Myalgias,slight cough. Elevated CPK Elevated ferritin level secondary to COVID infection, resolved COVID-19 (11/06/21) mild symptoms starting the evening 11/06/2021 with negative test and positive test on 11/07/2021. Pain of right heel (04/22/21) Elevated LFTs Pneumonia due to COVID-19 virus Rhabdomyolysis secondary to COVID-19 COVID-19 (~04/06/21) rapid test positive for 04/08/2021 0730 Polyp of colon (08/12/99) normal colonoscopy 02/18/1995, 2 polyps on 08/12/1999, polyp on 08/15/2005, 3 polyps on 02/22/2010, 2 polyps on 04/30/2017. normal colonoscopy 04/10/[address] Ruiz. repeat in 5 years. Family history of colon cancer in father Shortness of breath on exertion Acute pain of right foot Pes anserinus bursitis of left knee Osteoarthritis of left knee Otitis externa in other diseases classified elsewhere, right ear (10/13/20) Infected tick bite of neck (09/02/20) Acute non-recurrent maxillary sinusitis Encounter for screening for other viral diseases Exposure to COVID-19 virus Mixed hyperlipidemia Myositis ossificans (~10/10/16) right elbow after biceps tendon repair Pain in right forearm Encounter for wellness examination in adult Vitamin B12 deficiency anemia Encounter for prostate cancer screening Thoracic radiculitis KHURRAM on CPAP (~04/20/08) split sleep study 04/20/2008 with CPAP at 9 cm of water pressure. Surgical History Surgical History Hx of decompressive lumbar laminectomy (10/24/16) L3-L4, L4-L5 left History of vasectomy (01/12/92) History of nasal septoplasty (06/16/89) Hx of appendectomy (06/03/88) History of tonsillectomy and adenoidectomy (~12/19/1967) Family History Family History Father Acute myocardial infarction Colon cancer Mother Hypertension Social History Social History Smoking status: Never smoker Second hand tobacco smoke exposure: No Alcohol intake: never Substance use: never Substance use type: does not use Do You Feel Safe in your Home?: Yes Lack of Transportation: No Lack of Food: Never True Current Housing: I Have Housing Concerned About Future Housing: No Difficulty Paying Gas/Electric Bills: No Difficulty Paying for Meds: No Currently Unemployed: No Education: Master's Degree or Higher Difficulty w/ Childcare or Family Care: No Living arrangements: with family Gender identity (if verbalized by the patient): Male Spiritual care concerns: No Exam Narrative: GENERAL: Well appearing not in any acute distress, no dysphonia, tolerating oral intake. HEAD: Normocephalic, atraumatic EYES: [PERRLA and EOMI.] ENT: Nares clear, no rhinorrhea or epistaxis. Mucous membranes moist. NECK: Anterior cervical postoperative site is clean dry and intact without any hematoma, drainage, purulence CHEST: Nonlabored respirations HEART: Tachycardic rate with regular rhythm. ABDOMEN: Nondistended EXTREMITIES: Normal range of motion. SKIN: Warm, dry, no rash. NEURO: No focal deficits, alert oriented x3. PSYCH: Normal mood and affect Course Vital Signs Vital signs: Vital Signs Temperature 36.6 C 10/13/24 22:03 Pulse Rate 105 H 10/13/24 22:03 Respiratory Rate 15 10/13/24 22:03 Blood Pressure 138/76 10/13/24 22:03 Pulse Oximetry 97 10/13/24 22:03 Temperature 36.6 C 10/13/24 22:03 Pulse Rate 99 10/14/24 00:56 Respiratory Rate 17 10/14/24 00:56 Blood Pressure 129/78 10/14/24 00:56 Pulse Oximetry 98 10/14/24 00:56 Medical Decision Making MDM Narrative Medical decision making narrative: 63-year-old male status post C5-C6 diskectomy with Dr. Godinez postop day 1. Patient presents to the ER if he feels he has a magnesium oxide tablet stuck in the back of his throat at the level of his surgery. He states that he is having a prominent burning sensation the back was throat as well as coughing up particulate matter avoid resembles the pill with some chemical taste in his throat and back of the mouth. He spoke to his neurosurgeon prior to arrival and she was okay with any kind of endoscopy or laryngoscopy as warranted for his presentation. Patient did speak to Gastroenterology Dr. Velazquez prior to arrival and got some recommendations and was able to tolerate oral intake but still having the sensation and coughing of material. Patient is worried about potential ulcerative disease or necrosis with pill retained in the esophagus. No history of pill esophagitis or previous endoscopies. Has a history of reflux disease. He is otherwise well-appearing, surgical site is clean dry intact without any expansion, hematoma formation, purulent drainage or bleeding. He has full range of motion of the neck, no focal neurological deficits and is awake alert oriented and tolerating his own secretions without any drooling or trismus. Patient states that he called Dr. Velazquez and was told he might need a laryngoscopy with ENT and potential imaging and was referred to the hospital. Patient is not in any distress and I did order a CT noncontrast of the soft tissues of the neck for further delineation. Spoke to Dr. Calle from ENT who will come to bedside and scope the patient based on patient's symptoms and recommendations from GI. ENT has performed a bedside scope and did not see any retained foreign body or any evidence of ulceration or foreign material/erythema. ENT provide recommendations to the patient and myself regarding plan of care including a low citrate diet, Gaviscon for symptom control and expected management if any ulcerative disease were to develop. ENT physician and myself went over the CT scan findings and no appreciable retained products/injury or acute process was identified. He appears to have postsurgical changes without any other findings of concern per ENT. I did close the loop and touch base with Dr. Velazquez from GI and he agreed including thoughts to also add sucralfate/Carafate and a PPI if he tolerates as needed and have him follow-up outpatient or return with any emergent concerns. Patient was made aware of the plan and comfortable and safely discharged home at this time. Vital Signs Vital Signs: Vital Signs Temperature 36.6 C 10/13/24 22:03 Pulse Rate 105 H 10/13/24 22:03 Respiratory Rate 15 10/13/24 22:03 Blood Pressure 138/76 10/13/24 22:03 Pulse Oximetry 97 10/13/24 22:03 Temperature 36.6 C 10/13/24 22:03 Pulse Rate 99 10/14/24 00:56 Respiratory Rate 17 10/14/24 00:56 Blood Pressure 129/78 10/14/24 00:56 Pulse Oximetry 98 10/14/24 00:56 Lab Data Lab results reviewed: Yes I reviewed the patient's lab results. Imaging Data Attestation: I personally reviewed and interpreted this imaging study as follows: My impression: Impressions Soft Tissue Neck CT 10/13/24 23:52 IMPRESSION: 1. Air is seen in the soft tissues of the neck most likely postsurgical. 2. The vocal cords are unremarkable which may be due to edema. Clinical correlation advised. Discharge Plan Discharge Clinical Impression: Throat pain, At risk for pill esophagitis Patient Disposition: Home Condition: Stable Instructions: Antibiotic Form, Corrosive Esophagitis (ED) Additional Instructions: Your CT scan was reassuring and you have normal postoperative findings but no acute findings consistent with retained foreign body/pills/magnesium. GI and ENT have been consulted and provided recommendations. Current recommendations are for a soft diet for the next 4-5 days as well as low citrate foods/avoiding citrate, and treating symptoms of potential pill esophagitis or magnesium exposure to the mucosa with Gaviscon, Mylanta/liquid Carafate, and even a PPI twice daily if tolerable. Follow-up with your regular providers, return with any recurrent or emergent concerns Patient Language: Northern Irish Prescriptions: New sucralfate [Carafate] 100 mg/mL suspension 2 g PO BID Qty: 420 0RF Gaviscon Extra Strength 254-237.5 mg/5 mL suspension 10 ml PO QID PRN (Reason: dyspepsia) Qty: 355 0RF No Action Pepcid Complete 10-800-165 mg Tablet,Chewable 1 tablet PO PRN PRN (Reason: Acid Reflux) cyclobenzaprine 10 mg Tablet 10 mg PO TID PRN (Reason: Muscle Spasms) 10 Days Qty: 30 0RF sennosides-docusate sodium [Senokot-S] 8.6-50 mg Tablet 1 tab PO BID 7 Days Qty: 14 0RF oxycodone 5 mg Tablet 5 mg PO Q6H PRN (Reason: Pain Rated 4-6) 7 Days Qty: 28 0RF magnesium oxide 500 mg magnesium tablet 500 mg PO . q.h.s. FiberCon 625 mg tablet 1,250 mg PO BID arginine HCl (L-arginine) 1,000 mg tablet 1,000 mg PO . q.a.m. meloxicam 15 mg tablet 15 mg PO DAILY PRN (Reason: pain) Qty: 90 3RF Rx Instructions: [employer] pay with [facility] Follow-up/Referrals: Duong Calle MD [Physician] - 1 Week (ER follow up) Kim Ziegler NP [Primary Care Provider] - Brian Mason MD [Physician] - 1 Week (ER follow up) Time of Disposition: 00:32
[2024-10-13 23:23] VITALS: BP 131/85; PULSE 103; RESP 14; O2SAT 99
--- NOTE | 2024-10-14 00:33 | WPDCN ---
Assessment and Plan Assessment and plan (1) Throat pain: Code(s): R07.0 - Pain in throat Status: Acute (2) Odynophagia: Code(s): R13.10 - Dysphagia, unspecified Status: Acute (3) Other esophagitis: Code(s): K20.80 - Other esophagitis without bleeding Status: Acute Plan 63-year-old male with dysphagia and odynophagia status post cervical neck surgery. I have thoroughly reviewed the CT scan of the neck which reveals only post surgical gag as accumulation, I do not see any foreign body in the esophagus I AGREE WITH THE FINDINGS OF THE CT SCAN REPORT CT SOFT TISSUE NECK10/13/2024 :IMPRESSION: 1. Air is seen in the soft tissues of the neck most likely postsurgical. 2. The vocal cords are unremarkable which may be due to edema. Clinical correlation advised. PLAN: 1. Advised to do soft diet. 2. Avoid spicy or citric diet 3. Advised to use Gaviscon [id number] or meloxicam before meal.and viscous xylocaine for temporary relief of pain 4. In case of this developing severe pain, or high fever, patient needs to come to the ER. 5. Gastroenterology consult. 6. If the pain persists more than 4- 5 days then upper GI consult 7. Repeat consult as needed HPI Data of Consult Date/Time: 10/14/24 00:33 Primary Care Provider: Kim Ziegler NP Consult Narrative Narrative: Dalton Medina is a 63 year old male 63-year-old male who is postop day 1 from a anterior cervical diskectomy of C5-C6 with neurosurgeon Dr. Godinez. Patient presents the emergency started today as he is feeling like he has a pill stuck in the back of his throat near the level of his surgery. Patient states that he was taking his magnesium oxide tablets 4 mg and feels like the pill got stuck sideways. He was having some coughing and choking sensation but was able to tolerate oral intake afterwards. He states he has coughed up and produced particulars of frothy white material and now has a very prominent burning sensation the back of his throat. He called his neurosurgeon who referred him to go to the hospital for potential endoscopy or laryngoscopy and was reportedly okay with any of those procedures even with the cervical procedure that he had completed. Patient has had no dysphonia, no nausea, vomiting, abdominal pain, chest pain, shortness a breath. Is tolerating his own secretions. Not any distress. Review of Systems Review of Systems: All systems reviewed & are unremarkable except as noted in HPI and below (in HPI) [facility] Past Medical History Medical History Spinal stenosis of cervical region with radiculopathy Neurogenic claudication Myopathy Hypogonadism male Total testosterone 394 with free testosterone 63.4 on 11/26/2018. Testosterone 468 with free testosterone 77.2 on 05/09/2022. total testosterone 518 with free testosterone 80.5 On 08/21/2023. Muscle weakness of all 4 extremities Herpes zoster (~08/11/94) left L4 dermatome Lumbar spondylosis with myelopathy (~10/10/16) MRI of the lumbar spine on 10/10/2016 with multilevel disc pathology at L2-L3, L3-L4, L4-L5 with stenosis and neuroforaminal narrowing on the left at L3-L4 and L4-L5. Lumbar epidural 10/15/2016 at L2-L3, L3-L4, L4-L5. Lumbar decompression surgery on 10/24/2016 at L3-L4 and L4-L5. Cervical spondylosis (~04/13/15) MRI of the C-spine on 04/13/2015 with herniated disc on the left at C6-C7 moderate and mild herniation at C5-C6. MRI on 08/29/2016 with herniated disc on the left at C6-C7 and C5-C6. EMG and nerve conduction study revealed left cervical radiculopathy cervical epidural C6-C7 on the left on 09/05/2016. Ulnar neuropathy of both upper extremities (~05/2024) the 08/30/2024 with bilateral ulnar neuropathy worse on the left than the right with mild bilateral carpal tunnel syndrome. Carpal tunnel syndrome on both sides (~2023) EMG and nerve conduction study 08/30/2024 with bilateral carpal tunnel syndrome Calculus of distal left ureter (~05/10/13) stone extraction 05/24/2013. Rupture of distal biceps tendon (~05/2016) surgical repair right distal biceps tendon 06/08/2016 Abnormal fasting glucose Fasting glucose 104 on 02/11/2020. Fasting glucose 107 with hemoglobin A1c 5.5 05/09/2022. Colon cancer screening Renal stone passed asymptomatic 2 x 3 mm stone 11/03/2022. Left foot pain (~06/2023) X-ray of the left foot 07/23/2023 with mild arthritis. Plantar wart of left foot (~06/2023) over 5th metatarsal head Influenza A (05/14/23) tested positive 05/18/2023. Paresthesia of both hands (~2023) COVID-19 (12/09/23) 4th episode. Tested positive 12/10/2023. Influenza-like illness Influenza-like symptoms COVID-19 (02/04/23) 3rd episode with mild symptoms starting 02/04/2023 with negative COVID test. Tested positive 02/05/2023. Severe fatigue, weakness, arthralgias, Myalgias,slight cough. Elevated CPK Elevated ferritin level secondary to COVID infection, resolved COVID-19 (11/06/21) mild symptoms starting the evening 11/06/2021 with negative test and positive test on 11/07/2021. Pain of right heel (04/22/21) Elevated LFTs Pneumonia due to COVID-19 virus Rhabdomyolysis secondary to COVID-19 COVID-19 (~04/06/21) rapid test positive for 04/08/2021 0730 Polyp of colon (08/12/99) normal colonoscopy 02/18/1995, 2 polyps on 08/12/1999, polyp on 08/15/2005, 3 polyps on 02/22/2010, 2 polyps on 04/30/2017. normal colonoscopy 04/10/[address] Ruiz. repeat in 5 years. Family history of colon cancer in father Shortness of breath on exertion Acute pain of right foot Pes anserinus bursitis of left knee Osteoarthritis of left knee Otitis externa in other diseases classified elsewhere, right ear (10/13/20) Infected tick bite of neck (09/02/20) Acute non-recurrent maxillary sinusitis Encounter for screening for other viral diseases Exposure to COVID-19 virus Mixed hyperlipidemia Myositis ossificans (~10/10/16) right elbow after biceps tendon repair Pain in right forearm Encounter for wellness examination in adult Vitamin B12 deficiency anemia Encounter for prostate cancer screening Thoracic radiculitis KHURRAM on CPAP (~04/20/08) split sleep study 04/20/2008 with CPAP at 9 cm of water pressure. Surgical History Surgical History Hx of decompressive lumbar laminectomy (10/24/16) L3-L4, L4-L5 left History of vasectomy (01/12/92) History of nasal septoplasty (06/16/89) Hx of appendectomy (06/03/88) History of tonsillectomy and adenoidectomy (~12/19/1967) Family History Family History Father Acute myocardial infarction Colon cancer Mother Hypertension Social History Social History Smoking status: Never smoker Second hand tobacco smoke exposure: No Alcohol intake: never Substance use: never Substance use type: does not use Do You Feel Safe in your Home?: Yes Lack of Transportation: No Lack of Food: Never True Current Housing: I Have Housing Concerned About Future Housing: No Difficulty Paying Gas/Electric Bills: No Difficulty Paying for Meds: No Currently Unemployed: No Education: Master's Degree or Higher Difficulty w/ Childcare or Family Care: No Living arrangements: with family Gender identity (if verbalized by the patient): Male Spiritual care concerns: No Meds Home Medications and Allergies Home Medications ?Medication ?Instructions ?Recorded ?Confirmed ?Type famotidine-Ca carb-mag hydrox 10 1 tablet PO PRN PRN Acid Reflux 03/27/23 10/07/24 History mg-800 mg-165 mg chewable tablet (Pepcid Complete) arginine HCl (L-arginine) 1,000 mg 1,000 mg PO . q.a.m. 08/20/23 10/07/24 History tablet calcium polycarbophil 625 mg 1,250 mg PO BID 08/20/23 10/07/24 History tablet (FiberCon) magnesium oxide 500 mg PO . q.h.s. 08/20/23 10/07/24 History meloxicam 15 mg tablet 15 mg PO DAILY PRN pain #90 tabs 01/26/24 10/07/24 Rx cyclobenzaprine 10 mg tablet 10 mg PO TID PRN Muscle Spasms 10 10/12/24 Rx days #30 tabs oxycodone 5 mg tablet 5 mg PO Q6H PRN Pain Rated 4-6 7 10/12/24 Rx days #28 tabs sennosides 8.6 mg-docusate sodium 1 tab PO BID Constipation 7 days 10/12/24 Rx 50 mg tablet (Senokot-S) #14 tabs aluminum hydrox-magnesium carb 254 10 ml PO QID PRN dyspepsia #355 mL 10/14/24 Rx mg-237.5 mg/5 mL oral suspension (Gaviscon Extra Strength) sucralfate 100 mg/mL oral 2 g (20 mL) PO BID #420 mL 10/14/24 Rx suspension (Carafate) Allergies Allergy/AdvReac Type Severity Reaction Status Date / Time No Known Allergies Allergy Verified 10/13/24 21:58 Vital Signs Vital Signs - 24 hr 10/13/24 22:03 10/13/24 23:23 Temperature 36.6 C Pulse Rate 105 H 103 H Respiratory Rate 15 14 Blood Pressure 138/76 131/85 Pulse Oximetry 97 99 Exam Const: General: cooperative, healthy appearing and no acute distress HENMT: Head: normal to inspection Face/Nose/Sinus: Normal external nose present and Normal nares present Mouth: Yes Normal oral and palatal mucosa present and Yes tongue normal Throat: posterior oropharynx normal and uvula midline Other: FIBEROPTIC NASOLARYNGOSCOPY Anesthesia: Lidocaine and oxymetasoline Findings: The flexible fiberoptic laryngoscope was passed through the nasal cavity and advanced to examine the nasopharynx, oropharynx, hypopharynx and larynx. The nasopharynx was without masses, lesions or mucosal irregularities. The pharyngeal craig were symmetric without masses, lesions or mucosal irregularities. The vallecula and base of tongue was symmetric without masses, lesions or mucosal irregularities. The epiglottis and aryepiglottic folds were without masses, lesions or mucosal irregularities. The pyriform sinuses were symmetric without pooled secretions or suspicious lesions. The arytenoids and inter-arytenoid area was without erythema or edema. The glottis showed the false and true vocal folds to be without lesion. True vocal cords had normal mobility with abduction and and midline approximation with adduction. I do not see any foreign body or irritation in the laryngopharyngeal area EBL none No complications were noted. Eyes: General: appearance normal, both eyes and all related structures Neck: Neck: normal visual inspection (Surgical site neck scar due to cervical disc surgery, no subcutaneous gas) Resp: Effort & Inspection: normal respiratory effort Cardio: Jugular venous distension: no JVD
[2024-10-14] MEDS: ACETAMINOPHEN ELIXIR 325 MG/10.15 ML UDC 650 MG PO (00:50)
[2024-10-14] MEDS: MAG HYDROX/AL HYDROX/SIMETH 30 ML UDC PO (00:50)
[2024-10-14 00:54] VITALS: BP 129/78; PULSE 99; RESP 17; O2SAT 98
[2024-10-14 00:56] VITALS: BP 129/78; PULSE 99; RESP 17; O2SAT 98
== END 2024-10-14 00:59 | disposition home or self-care (01) ==
PROVIDERS: Emergency Provider Student in an Organized Health Care Education/Training Program; PCP Nurse Practitioner Family
DX: R07.0 Pain in throat (principal); R13.10 Dysphagia, unspecified; K20.80 Other esophagitis without bleeding; Z98.890 Other specified postprocedural states; E78.2 Mixed hyperlipidemia; D51.9 Vitamin B12 deficiency anemia, unspecified; M17.12 Unilateral primary osteoarthritis, left knee; G72.9 Myopathy, unspecified; G47.33 Obstructive sleep apnea (adult) (pediatric); Z86.0100 Personal history of colon polyps, unspecified; Z86.16 Personal history of COVID-19; Z87.01 Personal history of pneumonia (recurrent); Z87.442 Personal history of urinary calculi
CPT/HCPCS: 70490; 92511; 99284; A9270

== ENCOUNTER 2025-01-13 13:46 | Outpatient (CLI) | payer OTHER, SELFPAY ==
--- OUTSIDE RECORDS SUMMARY | 2010-01-04 09:00 | XMS_ITS | Continuity of Care Document ---
Author Organization [facility] [place] Address [address] [place] [address] Phone Care Team Providers Care Forensic Engineer Name Role Phone Griffin OD, Morris Unavailable Unavailable Procedures Procedure Date No Charge Glasses Check No Charge Glasses Check Eye Exam & Treatment Refraction No Charge Glasses Check Advance Directives Directive Yes / No Effective Date File Name No Information Encounters Encounter Description Practice Location Reason(s) For Visit Diagnoses Date Provider Providers Copied on Encounter [facility], [address] [place] [address] [address], [place], [place], [id number], tel:[phone] [facility] No Information 7-201 0 Griffin OD Morris. [address] , [address], [place], [place], [facility], . tel:[phone] [facility], [address] [place] [address] [address], [place], [place], [id number], [place] tel:[phone] [facility] No Information 8-200 9 Griffin OD Morris. [address] , [address], [place], [place], [facility], . tel:[phone] [facility], [id number] [place] [address] [address], [place], [place], [id number], tel:[phone] [facility] No Information 5-200 8 Griffin OD Morris. [address] , [address], [place], [address], [place]. tel:[phone] [facility], [address], [place], [place], [id number], [place] tel:[phone] [facility] No Information Mar-2 3-200 7 Griffin OD Morris. [address] , [address], [place], [address], [place]. tel:[phone] Family History Family Member Type Diagnosis Age At Onset No Information Payers Payer name Insurance type Covered republican ID Authoriza tion(s) No Information Social History Type Description Quantity Date Captured Comments Sex Male Smoking Status No Information Chief Complaint And Reason For Visit No Information Reason For Referral Reason For Referral No Information History Of Present Illness Encounter Date Complaint History Of Prese nt Illness No Information Functional Status Date Functional Assessmen t No Information Instructions Date Instruction Additional Infor mation No Information Assessments Type Assessment Date No Information Patient Care Teams Name Effective Dates (start - stop) Status Members No Information
--- NOTE | ~2025-01-13 | XR_ITS ---
EXAMINATION:[id number] DATE: 01/13/2025 14:00 INDICATION: Arthrodesis status 3 month post surgery TECHNIQUE: AP, lateral and odontoid views of the cervical spine are provided. COMPARISON: None FINDINGS: Alignment is normal. Odontoid is intact. Normal atlantoaxial interval. C5-C6 anterior spinal fusion with interbody fusion device and anterior plate-screw fixation. No lucency surrounding the screws to suggest loosening or infection. Vertebral body heights are normal. Moderate disc height loss at C6-C7. Remaining disc heights are normal. Multilevel mild cervical facet and uncovertebral osteoarthritis. Prevertebral soft tissues are normal. Visualized apices of lungs are clear. IMPRESSION: 1. Moderate lower cervical spondylosis with instrumented C5-C6 anterior spinal fusion. Reviewed, dictated and finalized at location A.
--- OUTSIDE RECORDS SUMMARY | 2025-01-13 14:08 | XMS_ITS | Clinical Summary ---
Author Organization [facility] Address [address], [address] [address] Phone Care Team Providers Care Grants Analyst Name Role Phone Aki Person MD Primary Care Provider [phone] Social History Tobacco Use Types Packs/Day Years Used Date Smoking Tobacco: Never Assessed Sex and Gender Information Value Date Recorded Sex Assigned at Not on file Legal Sex Male 10:28 PM CDT Gender Identity Not on file Sexual Orientation Not on file Plan of Treatment Health Maintenance Due Date Last Done Comments Hepatitis C Virus (HCV) Screening 1960 TdaP Immunization 1960 Cologuard 2006 Immunochemical Fecal Occult Blood 2006 Pneumococcal Immunization (5 0+ years) (1 of 1 - PCV) 12/20/2011 Zoster Immunization (1 of 2) 12/20/2011 Colonoscopy 04/30/2022 04/30/2017 Colorectal Cancer Screening 04/30/2022 SARS-COV-2 Immunization ( season) 2024 Influenza Immunization (#1) 2025 Respiratory Syncytial Virus (RSV) Immunization (Adult) (1 - 1-dose 75+ series) 2036 Hepatitis B Immunization Aged Out No longer eligible based on patient's age to complete this topic Human Papillomavirus (HPV) Immunization Aged Out No longer eligible b ased on patient's age to complete this topic Meningococcal Immunization (ACWY) Aged Out No longer eligible based on patient's age to complete this topic Rotavirus Immunization Aged Out No lo nger eligible based on patient's age to complete this topic Procedures Procedure Name Priority Date/Time Associated Diagnosis Comments HM COLONOSCOPY Routine 04/30/2017 from Last 3 Months or Most Recently Relevant to Health Maintenance Results * COLONOSCOPY (04/30/2017) Morris Cervantes DO PROCEDURE/MINOR SURGICAL ORDERA BLES Final Result from Last 3 Months or Most Recently Relevant to Health Maintenance Care Teams Grants Analyst Relationship Specialty Start Date End Date Aki Person MD [facility] [place] [address] PCP - General Club Waiter/Waitress 01/02/17
--- OUTSIDE RECORDS SUMMARY | 2025-01-13 14:08 | XMS_ITS | Clinical Summary ---
Author Organization [facility] [address] Address [address] [place] [address] Care Team Providers Care Transplant Worker Name Role Phone Kim Ziegler CAROLINE Primary Care Provider [phone] Allergies No known active allergies Medications meloxicam [...] on file Legal Sex Male 8:32 AM [employer] Gender Identity Not on file Sexual Orientation [...] Treatment Not on file Insurance Care Teams Transplant Worker Relationship Specialty Start Date End Date Kim Ziegler NP PCP - General Family Medicine 08/24/20
== END 2025-01-13 13:47 | disposition home or self-care (01) ==
LOC: ANHIMG 13:49
PROVIDERS: PCP Nurse Practitioner Family; Visit Provider Neurological Surgery
DX: Z98.1 Arthrodesis status (principal); M47.892 Other spondylosis, cervical region
CPT/HCPCS: 72040